=== PATIENT | male | born 1975 | race Caucasian/White ===

== ENCOUNTER 2020-09-27 21:23 | Emergency (ER) | payer OTHER, SELFPAY ==
[2020-09-27 22:41] VITALS: BP 162/79; PULSE 85; RESP 18; TEMP 36.9; O2SAT 98; BMI 40.5
[2020-09-27 23:10] LABS: Basophils Absolute Auto 0.1 X10*3/uL (0.0-0.2); Basophils Percent Auto 0.6 % (0-2); Eosinophils Absolute Auto 0.2 X10*3/uL (0.0-0.4); Eosinophils Percent Auto 1.5 % (0-4); Hematocrit 43.2 % (42-52); Hemoglobin 14.1 g/dl (14.0-18.0); Imm Gran Abs Auto 0.04 X10*3/uL (0.00-0.03); Imm Gran Pct Auto 0.4 % (0.0-0.4); Lymphocytes Absolute Auto 3.4 X10*3/uL (1.2-4.9); Lymphocytes Percent Auto 32.6 % (20-40); MANUAL DIFF FLAG SCAN; Mean Corpuscular HGB Conc 32.6 g/dl (31.0-36.0); Mean Corpuscular Hemoglobin 28.8 pg (27.0-33.0); Mean Corpuscular Volume 88.3 fL (80-98); Mean Platelet Volume 10.3 fL (9.4-12.4); Monocytes Absolute Auto 0.6 X10*3/uL (0.1-1.2); Monocytes Percent Auto 5.7 % (2-11); Neutrophils Absolute Auto 6.2 X10*3/uL (2.0-8.3); Neutrophils Percent Auto 59.2 % (45-73); PLT CLUMP 1; Red Blood Count 4.89 X10*6/uL (4.60-5.80); Red Cell Distribution Width 14.7 % (11.0-16.0); SCAN SMEAR FLAG 1
[2020-09-27 23:28] LABS: Platelet Count 193 X10*3/uL (160-400); SLIDE REVIEW VERIFIED; White Blood Count 10.5 X10*3/uL (4.8-10.8)
[2020-09-27 23:33] LABS: Anion Gap 14 (12-20); Blood Urea Nitrogen 13 mg/dL (9-16); Calcium 9.3 mg/dL (8.4-10.2); Carbon Dioxide 26 mmol/L (22-29); Chloride 102 mmol/L (96-108); Estimated Glomerular Filt Rate > 60; Glucose Random 105 mg/dL (60-115); Potassium 4.1 mmol/L (3.3-5.1); Sodium 138 mmol/L (135-145)
[2020-09-28] VITALS: BP 136/89; PULSE 99; RESP 18; TEMP 36.9; O2SAT 98
--- NOTE | 2020-09-28 00:48 | ED_ITS ---
HPI - Skin/Abscess/Foreign Bdy General Chief complaint: Skin/Abscess/Foreign Body Stated complaint: ?Blood infection Time Seen by Provider: 09/28/20 00:40 Source: patient Mode of arrival: ambulatory Limitations: no limitations History of Present Illness HPI narrative: 45-year-old male history of MRSA infection/abscesses, patient came in concerning of infection at his neck at the hairline, patient also noticed red line running from back of the neck to word right ear. Patient declined any fever or chills. Related Data Previous Rx's Medication Instructions Recorded doxycycline hyclate 100 mg PO BID #20 tab 09/28/20 Allergies Allergy/AdvReac Type Severity Reaction Status Date / Time No Known Allergies Allergy Verified 09/27/20 22:40 [No Known Allergies*] Review of Systems Review of Systems: All other systems are reviewed and are negative Constitutional: Reports as per HPI and Reports no additional constitutional complaints Eyes: Reports as per HPI and Reports no additional eye complaints Reports system reviewed and no additional complaints, except as documented Cardiovascular: Reports as per HPI and Reports no additional cardiovascular complaints Respiratory: Reports as per HPI and Reports no additional respiratory complaints Gastrointestinal: Reports as per HPI and Reports no additional gastrointestinal complaints Genitourinary: Reports no additional female genitourinary complaints Musculoskeletal: Reports no additional musculoskeletal complaints Skin/Breast: Reports system reviewed and no additional complaints, except as docu Psychiatric: Reports no additional psychiatric complaints Endocrine: Reports no additional endocrine complaints Hematologic/Lymphatic: Reports no additional hematologic/lymphatic complaints Allergic/Immunologic: Reports no additional allergic/immunologic complaints Reports system reviewed and no additional complaints, except as documented and Reports Abnormal speech present [facility] Past Medical History Medical History Anxiety Asthma Carpal tunnel syndrome Chronic pain COPD (chronic obstructive pulmonary disease) Depression Diabetes GERD (gastroesophageal reflux disease) HTN (hypertension) Neuropathy Opiate dependence PTSD (post-traumatic stress disorder) Sleep apnea Suicide attempt Thyroid activity decreased Physical Exam Vital Signs: Vital Signs: Last Vital Signs Temp 98.4 F 09/28/20 00:00 Pulse 99 09/28/20 00:00 Resp 18 09/28/20 00:00 BP 136/89 09/28/20 00:00 Pulse Ox 98 09/28/20 00:00 Body Mass Index 40.5 Vital signs have been reviewed as appeared to be correct. Blood pressure normal. Heart rate normal. Respiration rate normal. Temperature normal. Oxygen saturation normal. Appearance: Alert. Oriented X3. No acute distress. Head: Normal external exam. Normocephalic. Atraumatic. No Woody signs noted. No raccoon eyes noted Eyes: PERRLA. EOMI. Conjunctiva and sclera normal. Eyelids normal. ENT: TM's Normal. Pharynx normal. Uvula midline. Moist mucous membranes. No trismus noted. No drooling noted. No muffled voice noted. Neck: No area of fluctuation or abscess is appreciated, positive 7 x 1 cm streak red line running along the right side of the back of the neck, but no redness or hotness. Neck supple. FROM. No adenopathy. Thyroid Normal. No meningeal signs. No neck mass noted. CVS: Normal heart rate and rhythm. Heart sound normal. No murmurs noted. Pulses normal throughout. Respiratory: No respiratory distress. Painless inspiration. Breath sounds normal. No wheezes/rales/rhonchi noted. Chest nontender. No accessory muscle usage noted or decreased air movement noted. Abdomen: Soft and nontender. Bowel sounds normal in all 4 quadrants. No distention noted. No organomegaly noted. No visible injury noted. Back: No CVA tenderness. Full range of motion noted. Skin: Skin warm and dry. Normal skin color. Normal skin turgor. No rashes/lesions/lacerations noted. Extremities: No lower extremity edema. Extremities exhibit normal range of motion. Extremities nontender. Neuro: Oriented X 3. No motor deficit. No sensory deficit. Reflexes normal. Course Course Course Narrative: Cellulitis of the back of the neck. Normal WBCs, no abscesses appreciated. Will start the patient on doxycycline and have the patient return in 2 days to recheck on the wound. MDM - Skin/Abscess/Foreign Bdy Lab Data Attestation: I reviewed the patient's lab results. Result diagrams: 09/27/20 22:55 09/27/20 22:54 Labs: Lab Results 09/27/20 09/27/20 09/27/20 Range/Units 22:54 22:54 22:54 WBC (4.8-10.8) X10*3/uL RBC (4.60-5.80) X10*6/uL Hgb (14.0-18.0) g/dl Hct (42-52) % MCV (80-98) fL MCH (27.0-33.0) pg MCHC (31.0-36.0) g/dl RDW (11.0-16.0) % Plt Count (160-400) X10*3/uL MPV (9.4-12.4) fL Immature Gran % (Auto) (0.0-0.4) % Neut % (Auto) (45-73) % Lymph % (Auto) (20-40) % [place] % (Auto) (2-11) % Eos % (Auto) (0-4) % Baso % (Auto) (0-2) % Lymph # (Auto) (1.2-4.9) X10*3/uL [place] # (Auto) (0.1-1.2) X10*3/uL Eos # (Auto) (0.0-0.4) X10*3/uL Baso # (Auto) (0.0-0.2) X10*3/uL Abs Immat Gran (auto) (0.00-0.03) X10*3/uL Absolute Neuts (auto) (2.0-8.3) X10*3/uL Absolute Nucleated RBC (0.0-0.012) X10*3/uL Nucleated RBC % (auto) (0.0-0.2) /100WBC Smear Tech's Comments Hold Purple Top SEE NOTE Hold Blue Top SEE NOTE Sodium 138 (135-145) mmol/L Potassium 4.1 (3.3-5.1) mmol/L Chloride 102 (96-108) mmol/L Carbon Dioxide 26 (22-29) mmol/L Anion Gap 14 (12-20) BUN 13 (9-16) mg/dL Creatinine 0.86 (0.5-1.4) mg/dL Estim Creat Clear Calc 153.0 Estimated GFR > 60 Random Glucose 105 (60-115) mg/dL Calcium 9.3 (8.4-10.2) mg/dL 09/27/20 Range/Units 22:55 WBC 10.5 (4.8-10.8) X10*3/uL RBC 4.89 (4.60-5.80) X10*6/uL Hgb 14.1 (14.0-18.0) g/dl Hct 43.2 (42-52) % MCV 88.3 (80-98) fL MCH 28.8 (27.0-33.0) pg MCHC 32.6 (31.0-36.0) g/dl RDW 14.7 (11.0-16.0) % Plt Count 193 (160-400) X10*3/uL MPV 10.3 (9.4-12.4) fL Immature Gran % (Auto) 0.4 (0.0-0.4) % Neut % (Auto) 59.2 (45-73) % Lymph % (Auto) 32.6 (20-40) % [place] % (Auto) 5.7 (2-11) % Eos % (Auto) 1.5 (0-4) % Baso % (Auto) 0.6 (0-2) % Lymph # (Auto) 3.4 (1.2-4.9) X10*3/uL [place] # (Auto) 0.6 (0.1-1.2) X10*3/uL Eos # (Auto) 0.2 (0.0-0.4) X10*3/uL Baso # (Auto) 0.1 (0.0-0.2) X10*3/uL Abs Immat Gran (auto) 0.04 H (0.00-0.03) X10*3/uL Absolute Neuts (auto) 6.2 (2.0-8.3) X10*3/uL Absolute Nucleated RBC 0.000 (0.0-0.012) X10*3/uL Nucleated RBC % (auto) 0.0 (0.0-0.2) /100WBC Smear Tech's Comments VERIFIED Hold Purple Top Hold Blue Top Sodium (135-145) mmol/L Potassium (3.3-5.1) mmol/L Chloride (96-108) mmol/L Carbon Dioxide (22-29) mmol/L Anion Gap (12-20) BUN (9-16) mg/dL Creatinine (0.5-1.4) mg/dL Estim Creat Clear Calc Estimated GFR Random Glucose (60-115) mg/dL Calcium (8.4-10.2) mg/dL Discharge Plan Discharge Clinical Impression: Cellulitis Patient Disposition: Home, Self-Care Instructions: Cellulitis (ED) Additional Instructions: Return to the emergency department in 2 days for wound check. Prescriptions: New doxycycline hyclate 100 mg tablet 100 mg PO BID Qty: 20 RF: 0 Referrals: Physician,Unknown [Primary Care Provider] - 2 days
== END 2020-09-28 01:30 | disposition home or self-care (01) ==
LOC: HO.ED 09-28 01:00
PROVIDERS: Emergency Provider Emergency Medicine; PCP Internal Medicine
DX: L03.221 Cellulitis of neck (principal); I10 Essential (primary) hypertension; E11.9 Type 2 diabetes mellitus without complications; J45.909 Unspecified asthma, uncomplicated; K21.9 Gastro-esophageal reflux disease without esophagitis; F41.9 Anxiety disorder, unspecified; Z86.14 Personal history of Methicillin resistant Staphylococcus aureus infection
CPT/HCPCS: 36415; 80048; 85025; 87040; 99283; 99284

== ENCOUNTER 2021-03-22 22:08 | Emergency (ER) | payer OTHER, SELFPAY ==
--- NOTE | ~2021-03-22 | XR_ITS ---
EXAMINATION: CHEST 2 VIEWS CLINICAL INFORMATION: SOB . COMPARISON: 11/05/2018. TECHNIQUE: PA and lateral views of the chest obtained. FINDINGS: The lungs are well expanded. No focal infiltrate, effusion, edema, or pneumothorax. Cardiac and mediastinal silhouettes are within normal limits for technique. No acute bony abnormality seen XR/XR chest 2V IMPRESSION: No evidence of acute disease
[2021-03-22 23:29] VITALS: BP 128/91; PULSE 92; RESP 20; TEMP 36.5; O2SAT 98; BMI 40.6
[2021-03-23] VITALS: O2SAT 98
--- NOTE | 2021-03-23 00:23 | ED.URI ---
HPI - URI/Sore Throat General Chief Complaint: Upper Respiratory Symptoms Stated Complaint: SOB - infection Time Seen by Provider: 03/23/21 00:22 Source: patient History of Present Illness HPI Narrative: Patient history of anxiety PTSD , MRSA infection in the past claims that he has bugs on his body for last 4 months seen his PCP taken the treatment for scabies still feel that he has bugs on him Related Data Previous Rx's Medication Instructions Recorded doxycycline hyclate 100 mg tablet 100 mg PO BID #20 tab 09/28/20 doxycycline hyclate 100 mg tablet 100 mg PO BID #20 tab 03/23/21 Allergies Allergy/AdvReac Type Severity Reaction Status Date / Time grass pollen Allergy Itching Verified 03/22/21 23:32 mold Allergy Itching Verified 03/22/21 23:32 weed pollen Allergy Itching Verified 03/22/21 23:32 PMFSH Past Medical History Medical History Anxiety Asthma Carpal tunnel syndrome Chronic pain COPD (chronic obstructive pulmonary disease) Depression Diabetes GERD (gastroesophageal reflux disease) HTN (hypertension) Neuropathy Opiate dependence PTSD (post-traumatic stress disorder) Sleep apnea Suicide attempt Thyroid activity decreased Social History Social History Alcohol intake: unknown Patient Tobacco Use Status: Tobacco use Unknown Use of substances other than those prescribed or required for medical reasons: Unknown Advance Directives: No Advance Directives Information Provided: Yes Physical Exam Vital Signs: Vital Signs: Last Vital Signs Temp 97.7 F 03/22/21 23:29 Pulse 92 03/22/21 23:29 Resp 20 03/22/21 23:29 BP 128/91 H 03/22/21 23:29 Pulse Ox 98 03/23/21 00:00 Body Mass Index 40.6 Appearance: Alert. Oriented X3. No acute distress. Very anxious paranoid Eyes: PERRLA, No Nystagmus ENT: Pharynx normal. Oral Mucosa moist Neck: Normal inspection. Neck supple. CVS: Normal heart rate and rhythm. Pulses normal. Respiratory: No respiratory distress. Equal air entry bilateral, no wheezing/rales/rhonchi Abdomen: Soft and nontender. Bowel sounds are present, no mass palpable, no CVA tenderness Skin: Skin warm and dry. Normal skin color. Normal skin turgor. Multiple old scabs, no bugs were seen Extremities: No lower extremity edema. No calf tenderness Neuro: Oriented X 3. MDM - URI/Sore Throat MDM Narrative Medical decision making narrative: Patient very paranoid hallucinating about bugs on him no bugs were seen patient reassured and given a course of doxycycline for scabs on his body advised to follow-up with primary care doctor/infectious disease doctor which she has already appointment in 05/08 Lab Data Labs: Lab Results 03/22/21 Range/Units 23:56 COVID-19 (PINA) Negative (Negative) COVID-19 Clin Com See Note Discharge Plan Discharge Clinical Impression: Paranoid delusion Patient Disposition: Home, Self-Care Instructions: Psychotic Disorder (ED) Additional Instructions: Follow-up with psychiatrist/infectious disease doctor for bugs problem if you have No bugs were seen Take doxycycline for MRSA infection Prescriptions: New doxycycline hyclate 100 mg tablet 100 mg PO BID Qty: 20 RF: 0 No Action doxycycline hyclate 100 mg tablet 100 mg PO BID Qty: 20 RF: 0 Interventions: ED Discharge Assessment Last Done: 03/23/21 00:50
[2021-03-23 00:35] LABS: COVID-19 Test Negative (Negative)
--- NOTE | 2021-03-23 01:05 | PC.NURSE ---
Patient states that he has bugs imbedding into his skin. Provider at bedside for evaluation and patient became very agitated that provider did not see any bugs on his skin. Patient came in for upper respiratory sx. He then became very loud with pressured speech with ED provider. This advertising copywriter went to bring patient his discharge instructions to review them and ask any questions. Patient stated that he was not seen by the doctor and that the doctor only spent 2 minutes with him and did not assess patient's skin. This advertising copywriter witness the provider looking at patient's skin. No bugs were seen which upset the patient. Patient was recently treated with antiparasitic medication as well as medication for scabies. He states that he read that bugs were not suppose to go after people. We explained to patient that the doctor didn't see any bugs but that he was being given a prescription for antibiotic. Patient states that he is going to file a complaint with risk management regarding his visit to the emergency room
== END 2021-03-23 01:17 | disposition home or self-care (01) ==
PROVIDERS: Emergency Provider Internal Medicine; PCP Internal Medicine
DX: R06.02 Shortness of breath (principal); F23 Brief psychotic disorder; Z20.822 Contact with and (suspected) exposure to COVID-19; Z79.899 Other long term (current) drug therapy
CPT/HCPCS: 36415; 71046; 87635; 99283; 99284

== ENCOUNTER 2022-03-21 17:35 | Emergency (ER) | payer OTHER, SELFPAY ==
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
[2022-03-21 17:59] VITALS: BP 149/100; PULSE 104; RESP 20; TEMP 36.7; O2SAT 97; BMI 40.6
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
[2022-03-21 21:48] VITALS: BP 147/87; PULSE 97; RESP 18; TEMP 37.1; O2SAT 94
--- OUTSIDE RECORDS SUMMARY | 2022-03-21 21:53 | XMS_ITS | Continuity of Care Document ---
:1975 Author Organization [facility] [place] Address [address] [place] [address]- Care Team Providers Name Role Phone Inocenciosukhjinder Shine SIMMONS Primary Care Physician Encounter [facility] Date(s): 03/22/21 - 04/21/21 [facility] [place] [address] [place], [place] [address] Allergies, Adverse Reactions, Alerts Substance Reaction Severity Status NKA Active Immunizations Given and Recorded Vaccine Date Status Refusal Reason pneumococcal 23-valent vaccine 06/03/18 Given influenza virus vaccine, inactivated 06/03/18 Given influenza virus vaccine, inactivated 03/07/13 Given Medications 2 ccc 18 gauge 1 1/2inch, 2cc syringes for to draw. 2 ccc 18 gauge 1 1/2inch, 2cc syringes for to draw., See Instructions, # 2 application, Refills 0, Tot. Refills 0, Maintenance, Please come to clinic for teaching once you obtain the medication, 09/13/18 9:48:43 EDT, Compound Start Date: 09/13/18 Status: [id number] syringe with 21 gauge 1 inch needle 2cc syringe with 21 gauge 1 inch needle, See Instructions, # 4 application, Refills 11, Tot. [id number], Maintenance, use every 7 days to elicia levine, Please come to clinic for teaching once youobtain the medication, 10/09/18 15:07:16 EDT, Co... Start Date: 10/09/18 Status: OrderedAdvair Diskus 250 mcg-50 mcg inhalation powder 1, puffs, Inhalation, 2 times a day, rinse mouth and throat after use, # 180 each, Refills 5, Tot. Refills 5, Maintenance, 10/09/18 13:48:00 EDT, Powder, Route to Pharmacy Electronically, [id number], [facility]/pharmacy #[id number] Start Date: 10/09/18 Status: Orderedcholecalciferol 1000 intl units oral capsule See Instructions, By Mouth, # 90 each, 5 Refills, Maintenance, 10/09/18 13:48:00 EDT, Capsule Start Date: 10/09/18 Status: Orderedduloxetine 60 mg oral enteric coated capsule 1 capsule, By Mouth, Daily, # 30 capsule, 2 Refills, Maintenance, 06/10/19 12:29:00 EST, [facility] STORE [id number], 183, cm, 10/24/18 13:24:00 EDT, Height Start Date: 06/10/19 Status: OrderedFreestyle Lite Test Strips See Instructions, # 50 each, Refills 5, Tot. Refills 5, Maintenance, To test Blood sugar E11.49, 10/31/18 16:26:00 EDT, Compound Start Date: 10/31/18 Status: Orderedibuprofen 800 mg oral tablet 1, tablet, By Mouth, 3 times a day with meals, OR MILK., # 90 tablet, Refills 5, Tot. Refills 0, Acute, 07/28/19 10:56:00 EST, Route to Pharmacy Electronically, [id number], 183, cm, 07/14/19 10:13:00 EST, Height Start Date: 07/28/19 Status: Orderedmontelukast 10 mg oral tablet 10 mg, 1, tablet, By Mouth, Daily, # 90 tablet, Refills 5, Tot. Refills 5, Maintenance, 10/09/18 13:48:00 EDT, Route to Pharmacy Electronically, [id number], [facility]/pharmacy #[id number] Start Date: 10/09/18 Status: OrderedNeurontin 800 mg oral tablet 1 tablet = 800 mg, By Mouth, 4 times a day, # 360 tablet, 5 Refills, Maintenance, 10/09/18 13:48:00 EDT, mass pat checked 07/19/18, Do Not Filluntil 07/25/18 Start Date: 10/09/18 Status: OrderedNicotine 2 mg gum 1 each = 2 mg, Chew, Every 2 hours, PRN as needed for smoking cessation, Mint flavor, # 40 each, 1 Refills, Maintenance, 12/02/18 16:11:00 EDT, Gum Start Date: 12/02/18 Status: OrderedpredniSONE 20 mg oral tablet 3 tablet = 60 mg, By Mouth, Daily, # 15 tablet, 0 Refills, Maintenance, 01/11/21 15:28:00 EDT, Tablet, [facility]/pharmacy #[id number], Partial fill upon patient request if the prescription is for a schedule II opioid drug., 183, cm, 07/14/19 10:13:00 EST, Height Start Date: 01/11/21 Stop Date: 01/16/21 Status: OrderedProAir HFA 90 mcg/inh inhalation aerosol with adapter 2, puffs, Inhalation, Every 4 hours, # 3 each, Refills 5, Tot. Refills 5, Maintenance, 10/09/18 13:48:00 EDT, Route to Pharmacy Electronically, [id number], [facility]/pharmacy #[id number] Start Date: 10/09/18 Status: OrderedSuboxone 4 mg-1 mg sublingual film See Instructions, Sublingual Daily, 0 Refills, Maintenance, 03/26/18 13:59:48 EDT Start Date: 03/26/18 Status: Orderedtestosterone 20.25 mg/1.25 g (1.62%) transdermal gel 2 pack/packet, Topically, Daily in AM, apply to clean, dry, intact skin, # 60 pack/packet, 5 Refills, Maintenance, 07/14/19 10:24:00 EST, Gel, [facility]/pharmacy #[id number], 183, cm, 07/14/19 10:13:00 EST, Height Start Date: 07/14/19 Stop Date: 01/10/20 Status: OrderedTestosterone Cypionate 200 mg/mL intramuscular solution See Instructions, INJECT 0.25ML ( 50 mg) INTRAMUSCULARLY EVERY 7 DAYS, # 1 mL, 2 Refills, Soft Stop,06/13/19 14:18:00 EST, [facility]/pharmacy #[id number], 183, cm, 10/24/18 13:24:00 EDT, Height Start Date: 06/13/19 Status: Ordered Problem List Condition Effective Dates Status Health Status Informant Asthma(Confirmed) Active Attention deficit disorder(Confirmed) Active Carpal tunnel syndrome, 04/29/13 Active bilateral(Confirmed) History of substance abuse(Confirmed) Active Hypertension(Confirmed) Active Hypogonadism male(Confirmed) Active Morbid obesity with BMI of 40.0-44.9, Active adult(Confirmed) Reflux esophagitis(Confirmed) Active Tobacco abuse(Confirmed) Active Social History Social History Type Response Smoking Status Current every day smoker; Ty pe: Cigarettes entered on: 03/27/18 Sex
--- OUTSIDE RECORDS SUMMARY | 2022-03-21 21:53 | XMS_ITS | Continuity of Care Document ---
:1975 Author Organization [facility] Address [address] [place] [address]- Care Team Providers Name Role Phone Inocenciojose eShine lui DO Primary Care Physician [place] [facility] Date(s): 01/11/21 - 01/11/[address] [address]- Discharge Disposition: A-D/C Home Attending Physician: Kym Simmons MD Admitting Physician: Kym Simmons MD Referring Physician: Not on Staff, Referring MD Allergies, Adverse Reactions, Alerts Substance Reaction Severity [...] 9:48:43 EDT, Compound Start Date: 09/13/18 Status: [id number] syringe with 21 gauge 1 inch needle 2cc syringe with 21 gauge 1 inch needle, See Instructions, # 4 application, Refills 11, Tot. [id number], Maintenance, use every 7 days to annettet julianna, Please come to clinic for teaching once youobtain the medication, 10/09/18 15:07:16 EDT, Co... Start Date: 10/09/18 Status: OrderedAdvair Diskus 250 mcg-50 mcg inhalation powder 1, puffs, Inhalation, 2 times a day, rinse mouth and throat after use, # 180 each, Refills 5, Tot. Refills 5, Maintenance, 10/09/18 13:48:00 EDT, Powder, Route to Pharmacy Electronically, [id number], [facility]/pharmacy #[id number] Start Date: 10/09/18 Status: Orderedcholecalciferol 1000 intl units oral capsule See Instructions, By Mouth, # 90 each, 5 Refills, Maintenance, 10/09/18 13:48:00 EDT, Capsule Start Date: 10/09/18 Status: Orderedduloxetine 60 mg oral enteric coated capsule 1 capsule, By Mouth, Daily, # 30 capsule, 2 Refills, Maintenance, 06/10/19 12:29:00 EST, [facility] STORE 17163, 183, cm, 10/24/18 13:24:00 EDT, Height Start [...] 07/28/19 10:56:00 EST, Route to Pharmacy Electronically, [facility] ST[facility] [address], 183, cm, 07/14/19 10:13:00 EST, Height Start Date: 07/28/19 Status: Orderedmontelukast 10 mg oral tablet 10 mg, 1, tablet, By Mouth, Daily, # 90 tablet, Refills 5, Tot. Refills 5, Maintenance, 10/09/18 13:48:00 EDT, Route to Pharmacy Electronically, [id number], [facility]/pharmacy #[id number] Start Date: 10/09/18 Status: OrderedNeurontin 800 [...] 0 Refills, Maintenance, 01/11/21 15:28:00 EDT, Tablet, [facility]/pharmacy #[id number], Partial fill upon patient request if the prescription is for a schedule II opioid drug., 183, cm, 07/14/19 10:13:00 EST, Height Start Date: 01/11/21 Stop Date: 01/16/21 Status: OrderedProAir HFA 90 mcg/inh inhalation aerosol with adapter 2, puffs, Inhalation, Every 4 hours, # 3 each, Refills 5, Tot. Refills 5, Maintenance, 10/09/18 13:48:00 EDT, Route to Pharmacy Electronically, [id number], [facility]/pharmacy #[id number] Start Date: 10/09/18 Status: OrderedSuboxone 4 mg-1 mg sublingual film See Instructions, Sublingual Daily, 0 Refills, Maintenance, 03/26/18 13:59:48 EDT Start Date: 03/26/18 Status: Orderedtestosterone 20.25 mg/1.25 g (1.62%) transdermal gel 2 pack/packet, Topically, Daily in AM, apply to clean, dry, intact skin, # 60 pack/packet, 5 Refills, Maintenance, 07/14/19 10:24:00 EST, Gel, [facility]/pharmacy #[id number], 183, cm, 07/14/19 10:13:00 EST, Height Start Date: 07/14/19 Stop Date: 01/10/20 Status: OrderedTestosterone Cypionate 200 mg/mL intramuscular solution See Instructions, INJECT 0.25ML ( 50 mg) INTRAMUSCULARLY EVERY 7 DAYS, # 1 mL, 2 Refills, Soft Stop,06/13/19 14:18:00 EST, [facility]/pharmacy #[id number], 183, cm, 10/24/18 13:24:00 EDT, Height Start Date: 06/13/19 Status: Ordered Problem List Condition Effective Dates Status Health Status Informant Asthma(Confirmed) Active Attention deficit disorder(Confirmed) Active Carpal tunnel syndrome, 04/29/13 Active bilateral(Confirmed) History of substance abuse(Confirmed) Active Hypertension(Confirmed) Active Hypogonadism male(Confirmed) Active Morbid obesity with BMI of 40.0-44.9, Active adult(Confirmed) Reflux esophagitis(Confirmed) Active Tobacco abuse(Confirmed) Active Results Radiology Reports Exam Date Time Procedure Performing Provider Status 01/11/21 2:33 PM Chest 2 Views Frontal and Lat Shahzad Helm (Verified) Notes:(Chest 2 Views Frontal and Lat) Reason For Exam: Shortness of Breath, Fever;Other:RESULT: Chest 2 Views Frontal and Lat Chest 2 Views Frontal and Lat Reason: Other:; Shortness of Breath, Fever; Clinical Question(s): Pneumonia COMPARISON: 11/02/2007 FINDINGS: No acute cardiopulmonary process IMPRESSION: No acute abnormality. WSN: [id number] Ordering Physician: Terrie Bradford Dictated By: Jaron Truong MD Dictated Date/Time: 01/11/21 2:41 pm Reviewed By: Jaron Truong MD Signed By: Jaron Truong MD Signed Date/Time: 01/11/21 2:41 pm Transcribed By: PUNEET Transcribed Date/Time: 01/11/21 2:34 pm Vital Signs Most recent to oldest [Reference Range]: 1 2 Oxygen Saturation [94-100 %] 100 % 100 % (01/11/21 3:48 PM) (01/11/21 2:03 PM) Pulse Rate [55-90 bpm] 62 bpm 64 bpm (01/11/21 3:48 PM) (01/11/21 2:03 PM) Blood Pressure [90-138/55-84 mm Hg] 116/81 mm Hg 126/ 92 mm Hg (01/11/21 3:48 PM) (01/11/21 2:03 PM) Respiratory Rate [16-30 br/min] 18 br/min 20 br/mi n (01/11/21 3:48 PM) (01/11/21 2:03 PM) Temperature [96.8-100.4 DegF] 98.6 DegF (01/11/21 2:03 PM) Mode of Delivery (Oxygen) Room air Room air (01/11/21 3:48 PM) (01/11/21 2:03 PM) Blood pressure sites Arm, right Arm, right (01/11/21 3:48 PM) (01/11/21 2:03 PM) Temperature Route Oral (01/11/21 2:03 PM) Social History Social History Type Response Smoking Status Current every day smoker; Ty pe: Cigarettes entered on: 03/27/18 Sex
--- OUTSIDE RECORDS SUMMARY | 2022-03-21 21:53 | XMS_ITS | Continuity of Care Document ---
:1975 Author Organization [facility] [place] Address [address] [place] [address]- Care Team Providers Name Role Phone Shine Kim DO Primary Care Physician Encounter [facility] Date(s): 03/29/21 - 04/28/21 [facility] [place] [address] [place], [place] [address] Attending Physician: AdmLeonides [email or web address] Admitting Physician: Admtr, [email or web address] Referring Physician: Admtr, Ar8 Allergies, Adverse Reactions, Alerts Substance Reaction Severity [...] 9:48:43 EDT, Compound Start Date: 09/13/18 Status: Kjfkbdu1il syringe with 21 gauge 1 inch needle 2cc syringe with 21 gauge 1 inch needle, See Instructions, # 4 application, Refills 11, Tot. [id number], Maintenance, use every 7 days to inejct testosteron, Please come to clinic for teaching once youobtain the medication, 10/09/18 15:07:16 EDT, Co... Start Date: 10/09/18 Status: OrderedAdvair Diskus 250 mcg-50 mcg inhalation powder 1, puffs, Inhalation, 2 times a day, rinse mouth and throat after use, # 180 each, Refills 5, Tot. Refills 5, Maintenance, 10/09/18 13:48:00 EDT, Powder, Route to Pharmacy Electronically, [id number], [facility]/pharmacy #[id number] Start Date: 10/09/18 Status: Orderedcholecalciferol 1000 intl units oral capsule See Instructions, By Mouth, # 90 each, 5 Refills, Maintenance, 10/09/18 13:48:00 EDT, Capsule Start Date: 10/09/18 Status: Orderedduloxetine 60 mg oral enteric coated capsule 1 capsule, By Mouth, Daily, # 30 capsule, 2 Refills, Maintenance, 06/10/19 12:29:00 EST, [facility], 183, cm, 10/24/18 13:24:00 EDT, Height Start [...] 07/28/19 10:56:00 EST, Route to Pharmacy Electronically, [facility] ST[facility] [address]148, 183, cm, 07/14/19 10:13:00 EST, Height Start Date: 07/28/19 Status: Orderedmontelukast 10 mg oral tablet 10 mg, 1, tablet, By Mouth, Daily, # 90 tablet, Refills 5, Tot. Refills 5, Maintenance, 10/09/18 13:48:00 EDT, Route to Pharmacy Electronically, [id number], [facility]/pharmacy #[id number] Start Date: 10/09/18 Status: OrderedNeurontin 800 [...] 0 Refills, Maintenance, 01/11/21 15:28:00 EDT, Tablet, [facility]/pharmacy #[id number], Partial fill upon patient request if the prescription is for a schedule II opioid drug., 183, cm, 07/14/19 10:13:00 EST, Height Start Date: 01/11/21 Stop Date: 01/16/21 Status: OrderedProAir HFA 90 mcg/inh inhalation aerosol with adapter 2, puffs, Inhalation, Every 4 hours, # 3 each, Refills 5, Tot. Refills 5, Maintenance, 10/09/18 13:48:00 EDT, Route to Pharmacy Electronically, [id number], [facility]/pharmacy #[id number] Start Date: 10/09/18 Status: OrderedSuboxone 4 mg-1 mg sublingual film See Instructions, Sublingual Daily, 0 Refills, Maintenance, 03/26/18 13:59:48 EDT Start Date: 03/26/18 Status: Orderedtestosterone 20.25 mg/1.25 g (1.62%) transdermal gel 2 pack/packet, Topically, Daily in AM, apply to clean, dry, intact skin, # 60 pack/packet, 5 Refills, Maintenance, 07/14/19 10:24:00 EST, Gel, [facility]/pharmacy #[id number], 183, cm, 07/14/19 10:13:00 EST, Height Start Date: 07/14/19 Stop Date: 01/10/20 Status: OrderedTestosterone Cypionate 200 mg/mL intramuscular solution See Instructions, INJECT 0.25ML ( 50 mg) INTRAMUSCULARLY EVERY 7 DAYS, # 1 mL, 2 Refills, Soft Stop,06/13/19 14:18:00 EST, [facility]/pharmacy #[id number], 183, cm, 10/24/18 13:24:00 EDT, Height [...]
--- OUTSIDE RECORDS SUMMARY | 2022-03-21 21:53 | XMS_ITS | Continuity of Care Document ---
:1975 Author Organization [facility] Address [address] [place] [address]- Care Team Providers Name Role Phone Shine Kim DO Primary Care Physician Encounter [facility] Date(s): 12/23/19 - 01/22/20 [facility] [address] [place] [address]- [facility] Allergies, Adverse Reactions, Alerts Substance Reaction Severity [...] 9:48:43 EDT, Compound Start Date: 09/13/18 Status: Khvqdvm0pr syringe with 21 gauge 1 inch needle 2cc syringe with 21 gauge 1 inch needle, See Instructions, # 4 application, Refills 11, Tot. Kvqjevp63, Maintenance, use every 7 days to inejct testosteron, Please come to clinic for teaching once youobtain the medication, 10/09/18 15:07:16 EDT, Co... Start Date: 10/09/18 Status: OrderedAdvair Diskus 250 mcg-50 mcg inhalation powder 1, puffs, Inhalation, 2 times a day, rinse mouth and throat after use, # 180 each, Refills 5, Tot. Refills 5, Maintenance, 10/09/18 13:48:00 EDT, Powder, Route to Pharmacy Electronically, [id number], [facility]/pharmacy #[id number] Start Date: 10/09/18 Status: Orderedcholecalciferol 1000 intl units oral capsule See Instructions, By Mouth, # 90 each, 5 Refills, Maintenance, 10/09/18 13:48:00 EDT, Capsule Start Date: 10/09/18 Status: Orderedduloxetine 60 mg oral enteric coated capsule 1 capsule, By Mouth, Daily, # 30 capsule, 2 Refills, Maintenance, 06/10/19 12:29:00 EST, [facility] STORE 16778, 183, cm, 10/24/18 13:24:00 EDT, Height Start [...] 07/28/19 10:56:00 EST, Route to Pharmacy Electronically, [facility] STORE [id number], 183, cm, 07/14/19 10:13:00 EST, Height Start Date: 07/28/19 Status: Orderedmontelukast 10 mg oral tablet 10 mg, 1, tablet, By Mouth, Daily, # 90 tablet, Refills 5, Tot. Refills 5, Maintenance, 10/09/18 13:48:00 EDT, Route to Pharmacy Electronically, [id number], [facility]/pharmacy #[id number] Start Date: 10/09/18 Status: OrderedNeurontin [...] 16:11:00 EDT, Gum Start Date: 12/02/18 Status: OrderedProAir HFA 90 mcg/inh inhalation aerosol with adapter 2, puffs, Inhalation, Every 4 hours, # 3 each, Refills 5, Tot. Refills 5, Maintenance, 10/09/18 13:48:00 EDT, Route to Pharmacy Electronically, [id number], [facility]/pharmacy #[id number] Start Date: 10/09/18 Status: OrderedSuboxone 4 mg-1 mg sublingual film See Instructions, Sublingual Daily, 0 Refills, Maintenance, 03/26/18 13:59:48 EDT Start Date: 03/26/18 Status: Orderedtestosterone 20.25 mg/1.25 g (1.62%) transdermal gel 2 pack/packet, Topically, Daily in AM, apply to clean, dry, intact skin, # 60 pack/packet, 5 Refills, Maintenance, 07/14/19 10:24:00 EST, Gel, [facility]/pharmacy #[id number], 183, cm, 07/14/19 10:13:00 EST, Height Start Date: 07/14/19 Stop Date: 01/10/20 Status: OrderedTestosterone Cypionate 200 mg/mL intramuscular solution See Instructions, INJECT 0.25ML ( 50 mg) INTRAMUSCULARLY EVERY 7 DAYS, # 1 mL, 2 Refills, Soft Stop,06/13/19 14:18:00 EST, [facility]/pharmacy #[id number], 183, cm, 10/24/18 13:24:00 EDT, Height [...]
--- OUTSIDE RECORDS SUMMARY | 2022-03-21 21:53 | XMS_ITS | Continuity of Care Document ---
:1975 Author Organization [facility] [place] Address [address] [place] [address]- Care Team Providers Name Role Phone Yonatan REHMAN, Jaron Allison Primary Care Physician Encounter [facility] Date(s): 07/14/19 - 07/24/19 [facility] [address] [place] [address]- [facility] Attending Physician: Admtr, Ar8 Admitting Physician: Admtr, Ar8 Referring Physician: Admtr, Ar8 Allergies, Adverse Reactions, [...] 9:48:43 EDT, Compound Start Date: 09/13/18 Status: Lxukvxa1jj syringe with 21 gauge 1 inch needle 2cc syringe with 21 gauge 1 inch needle, See Instructions, # 4 application, Refills 11, Tot. [id number], Maintenance, use every 7 days to elicia levine, Please come to clinic for teaching once youobtain the medication, 10/09/18 15:07:16 EDT, Co... Start Date: 10/09/18 Status: OrderedAdvair Diskus 250 mcg-50 mcg inhalation powder 1, puffs, Inhalation, 2 times a day, rinse mouth and throat after use, # 180 each, Refills 5, Tot. Refills 5, Maintenance, 10/09/18 13:48:00 EDT, Powder, Route to Pharmacy Electronically, [id number], [facility]/pharmacy #[id number] Start Date: 10/09/18 Status: Orderedcholecalciferol 1000 intl units oral capsule See Instructions, By Mouth, # 90 each, 5 Refills, Maintenance, 10/09/18 13:48:00 EDT, Capsule Start Date: 10/09/18 Status: Orderedduloxetine 60 mg oral enteric coated capsule 1 capsule, By Mouth, Daily, # 30 capsule, 2 Refills, Maintenance, 06/10/19 12:29:00 EST, [facility], 183, cm, 10/24/18 13:24:00 EDT, Height Start Date: 06/10/19 Status: OrderedFreestyle Lite Test Strips See Instructions, # 50 each, Refills 5, Tot. Refills 5, Maintenance, To test Blood sugar E11.49, 10/31/18 16:26:00 EDT, Compound Start Date: 10/31/18 Status: Orderedibuprofen 800 mg oral tablet 800 mg, 1, tablet, By Mouth, 3 times a day, with food or milk, # 90 tablet, Refills 5, Tot. Refills 5, Maintenance, 10/09/18 13:48:00 EDT, Route to Pharmacy Electronically, [id number], [id number] Start Date: 10/09/18 Status: Orderedmontelukast 10 mg oral tablet 10 mg, 1, tablet, By Mouth, Daily, # 90 tablet, Refills 5, Tot. Refills 5, Maintenance, 10/09/18 13:48:00 EDT, Route to Pharmacy Electronically, [id number], [facility]/pharmacy #0693 Start Date: 10/09/18 Status: OrderedNeurontin [...] 10/09/18 13:48:00 EDT, Route to Pharmacy Electronically, [id number], [facility]/pharmacy #[id number] Start Date: 10/09/18 Status: OrderedSuboxone 4 mg-1 mg sublingual film See Instructions, Sublingual Daily, 0 Refills, Maintenance, 03/26/18 13:59:48 EDT Start Date: 03/26/18 Status: Orderedtestosterone 20.25 mg/1.25 g (1.62%) transdermal gel 2 pack/packet, Topically, Daily in AM, apply to clean, dry, intact skin, # 60 pack/packet, 5 Refills, Maintenance, 07/14/19 10:24:00 EST, Gel, [facility]/pharmacy #[id number], 183, cm, 07/14/19 10:13:00 EST, Height Start Date: 07/14/19 Stop Date: 01/10/20 Status: OrderedTestosterone Cypionate 200 mg/mL intramuscular solution See Instructions, INJECT 0.25ML ( 50 mg) INTRAMUSCULARLY EVERY 7 DAYS, # 1 mL, 2 Refills, Soft Stop,06/13/19 14:18:00 EST, [facility]/pharmacy #[id number], 183, cm, 10/24/18 13:24:00 EDT, [...]
--- OUTSIDE RECORDS SUMMARY | 2022-03-21 21:53 | XMS_ITS | Continuity of Care Document ---
:1975 Author Organization [facility] Address [address] [place] [address]- Care Team Providers Name Role Phone Shine Kim DO Primary Care Physician Encounter [facility] Date(s): 12/16/19 - 01/15/20 [facility] [address] [place] [address]- [facility] Allergies, Adverse Reactions, Alerts Substance Reaction Severity [...] 9:48:43 EDT, Compound Start Date: 09/13/18 Status: Maozctk5ml syringe with 21 gauge 1 inch needle 2cc syringe with 21 gauge 1 inch needle, See Instructions, # 4 application, Refills 11, Tot. [id number], Maintenance, use every 7 days to arianajct testosteron, Please come to clinic for teaching once youobtain the medication, 10/09/18 15:07:16 EDT, Co... Start Date: 10/09/18 Status: OrderedAdvair Diskus 250 mcg-50 mcg inhalation powder 1, puffs, Inhalation, 2 times a day, rinse mouth and throat after use, # 180 each, Refills 5, Tot. Refills 5, Maintenance, 10/09/18 13:48:00 EDT, Powder, Route to Pharmacy Electronically, [id number], [facility]/pharmacy #[id number] Start Date: 10/09/18 Status: Orderedcholecalciferol 1000 intl units oral capsule See Instructions, By Mouth, # 90 each, 5 Refills, Maintenance, 10/09/18 13:48:00 EDT, Capsule Start Date: 10/09/18 Status: Orderedduloxetine 60 mg oral enteric coated capsule 1 capsule, By Mouth, Daily, # 30 capsule, 2 Refills, Maintenance, 06/10/19 12:29:00 EST, [facility] [id number], 183, cm, 10/24/18 13:24:00 EDT, Height Start [...] 07/28/19 10:56:00 EST, Route to Pharmacy Electronically, [facility] [id number], 183, cm, 07/14/19 10:13:00 EST, Height Start Date: 07/28/19 Status: Orderedmontelukast 10 mg oral tablet 10 mg, 1, tablet, By Mouth, Daily, # 90 tablet, Refills 5, Tot. Refills 5, Maintenance, 10/09/18 13:48:00 EDT, Route to Pharmacy Electronically, [id number], [facility]/pharmacy #[id number] Start Date: 10/09/18 Status: OrderedNeurontin [...] 10/09/18 13:48:00 EDT, Route to Pharmacy Electronically, [id number], [facility]/pharmacy #[id number] Start Date: 10/09/18 Status: OrderedSuboxone 4 mg-1 mg sublingual film See Instructions, Sublingual Daily, 0 Refills, Maintenance, 03/26/18 13:59:48 EDT Start Date: 03/26/18 Status: Orderedtestosterone 20.25 mg/1.25 g (1.62%) transdermal gel 2 pack/packet, Topically, Daily in AM, apply to clean, dry, intact skin, # 60 pack/packet, 5 Refills, Maintenance, 07/14/19 10:24:00 EST, Gel, [facility]/pharmacy #[id number], 183, cm, 07/14/19 10:13:00 EST, Height Start Date: 07/14/19 Stop Date: 01/10/20 Status: OrderedTestosterone Cypionate 200 mg/mL intramuscular solution See Instructions, INJECT 0.25ML ( 50 mg) INTRAMUSCULARLY EVERY 7 DAYS, # 1 mL, 2 Refills, Soft Stop,06/13/19 14:18:00 EST, [facility]/pharmacy #[id number], 183, cm, 10/24/18 13:24:00 EDT, [...]
--- OUTSIDE RECORDS SUMMARY | 2022-03-21 21:53 | XMS_ITS | Continuity of Care Document ---
:1975 Author Organization [facility] Address [address] [place] [address]- Care Team Providers Name Role Phone Shine Kim DO Primary Care Physician Encounter [facility] Date(s): 12/25/19 - 01/24/20 [facility] [address] [place] [address]- [facility] Allergies, Adverse Reactions, Alerts Substance Reaction Severity [...] 9:48:43 EDT, Compound Start Date: 09/13/18 Status: [id number] syringe with 21 gauge 1 inch needle 2cc syringe with 21 gauge 1 inch needle, See Instructions, # 4 application, Refills 11, Tot. [id number], Maintenance, use every 7 days to inejct testosteron, Please come to clinic for teaching once youobtain the medication, 10/09/18 15:07:16 EDT, Co... Start Date: 10/09/18 Status: OrderedAdvair Diskus 250 mcg-50 mcg inhalation powder 1, puffs, Inhalation, 2 times a day, rinse mouth and throat after use, # 180 each, Refills 5, Tot. Refills 5, Maintenance, 10/09/18 13:48:00 EDT, Powder, Route to Pharmacy Electronically, [id number], [facility]/pharmacy #[id number] Start Date: 10/09/18 Status: Orderedcholecalciferol 1000 intl units oral capsule See Instructions, By Mouth, # 90 each, 5 Refills, Maintenance, 10/09/18 13:48:00 EDT, Capsule Start Date: 10/09/18 Status: Orderedduloxetine 60 mg oral enteric coated capsule 1 capsule, By Mouth, Daily, # 30 capsule, 2 Refills, Maintenance, 06/10/19 12:29:00 EST, [facility] [id number], 183, cm, 10/24/18 13:24:00 EDT, Height Start [...] 07/28/19 10:56:00 EST, Route to Pharmacy Electronically, [facility] [id number], 183, cm, 07/14/19 10:13:00 EST, Height Start Date: 07/28/19 Status: Orderedmontelukast 10 mg oral tablet 10 mg, 1, tablet, By Mouth, Daily, # 90 tablet, Refills 5, Tot. Refills 5, Maintenance, 10/09/18 13:48:00 EDT, Route to Pharmacy Electronically, [id number], [facility]/pharmacy #[id number] Start Date: 10/09/18 Status: OrderedNeurontin 800 [...] 10/09/18 13:48:00 EDT, Route to Pharmacy Electronically, [id number], [facility]/pharmacy #[id number] Start Date: 10/09/18 Status: OrderedSuboxone 4 mg-1 mg sublingual film See Instructions, Sublingual Daily, 0 Refills, Maintenance, 03/26/18 13:59:48 EDT Start Date: 03/26/18 Status: Orderedtestosterone 20.25 mg/1.25 g (1.62%) transdermal gel 2 pack/packet, Topically, Daily in AM, apply to clean, dry, intact skin, # 60 pack/packet, 5 Refills, Maintenance, 07/14/19 10:24:00 EST, Gel, [facility]/pharmacy #[id number], 183, cm, 07/14/19 10:13:00 EST, Height Start Date: 07/14/19 Stop Date: 01/10/20 Status: OrderedTestosterone Cypionate 200 mg/mL intramuscular solution See Instructions, INJECT 0.25ML ( 50 mg) INTRAMUSCULARLY EVERY 7 DAYS, # 1 mL, 2 Refills, Soft Stop,06/13/19 14:18:00 EST, [facility]/pharmacy #[id number], 183, cm, 10/24/18 13:24:00 EDT, Height [...]
--- OUTSIDE RECORDS SUMMARY | 2022-03-21 21:53 | XMS_ITS | Continuity of Care Document ---
:1975 Author Organization [facility] Address [address] [place] [address]- Care Team Providers Name Role Phone Shine Kim DO Primary Care Physician Encounter [facility] Date(s): 12/25/19 - 01/24/20 [facility] [address] [place] [address]- [facility] Allergies, Adverse Reactions, Alerts Substance Reaction Severity [...] 9:48:43 EDT, Compound Start Date: 09/13/18 Status: [id number] syringe with 21 gauge 1 inch needle 2cc syringe with 21 gauge 1 inch needle, See Instructions, # 4 application, Refills 11, Tot. [id number], Maintenance, use every 7 days to inejct testosteron, Please come to clinic for teaching once youobtain the medication, 10/09/18 15:07:16 EDT, Co... Start Date: 10/09/18 Status: OrderedAdvair Diskus 250 mcg-50 mcg inhalation powder 1, puffs, Inhalation, 2 times a day, rinse mouth and throat after use, # 180 each, Refills 5, Tot. Refills 5, Maintenance, 10/09/18 13:48:00 EDT, Powder, Route to Pharmacy Electronically, [id number], [facility]/pharmacy #[id number] Start Date: 10/09/18 Status: Orderedcholecalciferol 1000 intl units oral capsule See Instructions, By Mouth, # 90 each, 5 Refills, Maintenance, 10/09/18 13:48:00 EDT, Capsule Start Date: 10/09/18 Status: Orderedduloxetine 60 mg oral enteric coated capsule 1 capsule, By Mouth, Daily, # 30 capsule, 2 Refills, Maintenance, 06/10/19 12:29:00 EST, [facility] [id number], 183, cm, 10/24/18 13:24:00 EDT, Height Start [...] 07/28/19 10:56:00 EST, Route to Pharmacy Electronically, [facility] [id number], 183, cm, 07/14/19 10:13:00 EST, Height Start Date: 07/28/19 Status: Orderedmontelukast 10 mg oral tablet 10 mg, 1, tablet, By Mouth, Daily, # 90 tablet, Refills 5, Tot. Refills 5, Maintenance, 10/09/18 13:48:00 EDT, Route to Pharmacy Electronically, [id number], [facility]/pharmacy #[id number] Start Date: 10/09/18 Status: OrderedNeurontin 800 [...] 10/09/18 13:48:00 EDT, Route to Pharmacy Electronically, [id number], [facility]/pharmacy #[id number] Start Date: 10/09/18 Status: OrderedSuboxone 4 mg-1 mg sublingual film See Instructions, Sublingual Daily, 0 Refills, Maintenance, 03/26/18 13:59:48 EDT Start Date: 03/26/18 Status: Orderedtestosterone 20.25 mg/1.25 g (1.62%) transdermal gel 2 pack/packet, Topically, Daily in AM, apply to clean, dry, intact skin, # 60 pack/packet, 5 Refills, Maintenance, 07/14/19 10:24:00 EST, Gel, [facility]/pharmacy #[id number], 183, cm, 07/14/19 10:13:00 EST, Height Start Date: 07/14/19 Stop Date: 01/10/20 Status: OrderedTestosterone Cypionate 200 mg/mL intramuscular solution See Instructions, INJECT 0.25ML ( 50 mg) INTRAMUSCULARLY EVERY 7 DAYS, # 1 mL, 2 Refills, Soft Stop,06/13/19 14:18:00 EST, [facility]/pharmacy #[id number], 183, cm, 10/24/18 13:24:00 EDT, Height [...]
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
== END 2022-03-22 00:25 | disposition home or self-care (01) ==
PROVIDERS: Emergency Provider Emergency Medicine Emergency Medical Services; PCP Internal Medicine
DX: S16.1XXA Strain of muscle, fascia and tendon at neck level, initial encounter (principal); S43.402A Unspecified sprain of left shoulder joint, initial encounter; M54.2 Cervicalgia; R51.9 Headache, unspecified; M25.551 Pain in right hip; M25.562 Pain in left knee; V43.52XA Car driver injured in collision with other type car in traffic accident, initial encounter; Y93.9 Activity, unspecified; Y92.410 Unspecified street and highway as the place of occurrence of the external cause; Y99.9 Unspecified external cause status; Z79.899 Other long term (current) drug therapy
CPT/HCPCS: 72040; 73030; 73502; 73560; 99283

== ENCOUNTER 2025-02-12 10:33 | Emergency (ER) | payer OTHER, SELFPAY ==
[2025-02-12 10:48] VITALS: BP 182/90; PULSE 85; O2SAT 100; BMI 30.5
[2025-02-12 11:00] VITALS: BP 140/71; PULSE 88; RESP 16; TEMP 36.8; O2SAT 99
--- NOTE | 2025-02-12 11:15 | PC.NURSE ---
Addendum entered by Sylvie Monge RN 02/12/25 11:18: Patient is a 49 yo male who presents with sciatic pain for the past 2 days. Patient alert and oriented. Morbidly obese. Lungs clear bilat. Respirations even and non-labored. Abdomen large, soft, non-tender with positive bowel sounds. Positive pedal pulses with no edema. Patient c/o left sided sciatic pain radiating to his knee with some numbness to his foot. Original Note: Medical History Anxiety Asthma Carpal tunnel syndrome Chronic pain COPD (chronic obstructive pulmonary disease) Depression Diabetes GERD (gastroesophageal reflux disease) HTN (hypertension) Neuropathy Opiate dependence PTSD (post-traumatic stress disorder) Sleep apnea Suicide attempt Thyroid activity decreased
--- NOTE | 2025-02-12 11:20 | ED_ITS ---
HPI - Back Pain/Injury General Chief Complaint: Back Pain/Injury Stated Complaint: LOW BACK TO LLE PAIN,NO INJURY PER EMS Time Seen by Provider: 02/12/25 11:01 History of Present Illness ED Provider: fern HPI Narrative: 49-year-old male who reports a history of obesity with significant desired weight loss , chronic degenerative disease or bones verse in the lower thoracic spine per his description with chronic sciatic usually right side occasionally left side for the past 42 hours he reports atraumatic severe left low back pain radiating down left leg consistent with previous sciatica. No incontinence no numbness tingling weakness denies any perineal anesthesia or overt motor deficits. Pain is severe he has not taking much suud-hwa-cyptayr at home. Related Data Previous Rx's ?Medication ?Instructions ?Recorded doxycycline hyclate 100 mg tablet 100 mg PO BID #20 ta bs 09/28/20 doxycycline hyclate 100 mg tablet 100 mg PO BID #20 ta bs 03/23/21 cyclobenzaprine 10 mg tablet 10 mg PO TID PRN muscle s pasm #14 02/12/25 tabs oxycodone 5 mg tablet 5 mg PO Q8H PRN pain #10 tab s 02/12/25 prednisone 20 mg tablet 60 mg (3 x 20 mg) PO DAILY 4 days 02/12/25 #12 tabs Allergies Allergy/AdvReac Type Severity Reaction Status Date / Time grass pollen Allergy Itching Verified 02/12/25 10:57 mold Allergy Itching Verified 02/12/25 10:57 weed pollen Allergy Itching Verified 02/12/25 10:57 PMFSH Past Medical History Medical History Anxiety Asthma Carpal tunnel syndrome Chronic pain COPD (chronic obstructive pulmonary disease) Depression Diabetes GERD (gastroesophageal reflux disease) HTN (hypertension) Neuropathy Opiate dependence PTSD (post-traumatic stress disorder) Sleep apnea Suicide attempt Thyroid activity decreased Social History Social History Alcohol intake: unknown Patient Tobacco Use Status: Tobacco use Unknown Smoked in Last 30 Days: No Use of substances other than those prescribed or required for medical reasons: No Advance Directives: No Advance Directives Information Provided: No Physical Exam 2 Exam: Exam: EXAM: Gen: Alert, awake, appears in significant pain redirectable and conversational. No distress Head: Atraumatic Eyes: Anicteric, Normal conjunctiva. ENT: Moist mucosa, no pallor. ? Neck: Supple. Skin: ?No observable rash or bruising on exposed or examined skin Respiratory: Breathing comfortably, No distress.Clear to auscultation bilaterally, symmetric chest expansion, No wheeze, rales, ronchi. Cardiovascular: Regular rate and rhythm. No murmurs or rub. Well perfused periphery, warm extremities. No edema. ? Abdominal: No focal tenderness. Soft, no objective distension. No palpable masses or obvious organomegaly. ?No guarding, no rebound tenderness or other peritoneal findings. : No flank tenderness. Neuro: Alert. Gross movement of all extremities intact. ?5/5 strength left lower extremity proximal and distal with intact sensation to light touch normal tone. Unable to assess reflexes given patient's positioning Psych: Calm. Cooperative. MSK: No grossly visible deformity. Tender left lower lumbosacral region no bruising no midline tenderness of the spine Vital signs: See flowsheet Vital Signs: Vital Signs: Last Vital Signs Temp 98.6 F 02/12/25 16:48 Pulse 80 02/12/25 16:48 Resp 14 02/12/25 16:48 BP 152/91 H 02/12/25 16:48 Pulse Ox 96 02/12/25 16:48 O2 Del Method Room Air 02/12/25 16:48 BMI result Body Mass Index 30.5 Medications Administered Discontinued Medications Generic Name Dose Route Start Last Admin Trade Name Freq PRN Reason Stop Dose Admin Dexamethasone Sodium Phosphate 10 mg 02/12/25 11:16 02/12/25 11:53 Dexamethasone Sod Phosphate 10 Mg/Ml Vial IVPUSH 02/12/25 11:17 10 mg ONCE ONE Administration Diazepam 5 mg 02/12/25 11:16 02/12/25 11:54 Diazepam 10 Mg/2 Ml Cartridge IVPUSH 02/12/25 11:17 5 mg STAT STA Administration Diazepam 2.5 mg 02/12/25 14:56 02/12/25 15:02 Diazepam 10 Mg/2 Ml Cartridge IVPUSH 02/12/25 14:57 2.5 mg STAT STA Administration Hydromorphone HCl 1 mg 02/12/25 11:16 02/12/25 11:54 Hydromorphone Hcl 1 Mg/Ml Syringe IVPUSH 02/12/25 11:17 1 mg ONCE ONE Administration Protocol Hydromorphone HCl 2 mg 02/12/25 12:48 02/12/25 13:14 Hydromorphone Hcl 2 Mg/Ml Vial IVPUSH 02/12/25 12:49 2 mg ONCE ONE Administration Protocol Acetaminophen 1,000 mg in 100 mls @ 400 mls/hr 02/12/25 12:48 02/12/25 14:38 Ofirmev IV 02/12/25 13:02 Infused ONCE ONE Infusion Ketorolac Tromethamine 30 mg 02/12/25 11:16 02/12/25 11:53 Ketorolac Tromethamine 30 Mg/Ml Vial IVPUSH 02/12/25 11:17 30 mg ONCE ONE Administration Lidocaine 1 patch 02/12/25 14:56 02/12/25 15:02 Lidocaine 4 % Patch Adh..Patch TRANSDERMA 02/12/25 14:57 1 patch ONCE ONE Administration Protocol Morphine Sulfate 15 mg 02/12/25 14:47 02/12/25 14:55 Morphine Sulfate Immed Release 15 Mg Tablet PO 02/12/25 14:48 Not Given ONCE ONE Oxycodone HCl 10 mg 02/12/25 14:55 02/12/25 15:01 Oxycodone Hcl Immed Release 5 Mg Tablet PO 02/12/25 14:56 10 mg ONCE ONE Administration Oxycodone HCl 10 mg 02/12/25 16:33 02/12/25 16:37 Oxycodone Hcl Er 10 Mg Tab.Er.12h PO 02/12/25 16:34 10 mg ONCE ONE Administration Medical Decision Making Medical Decision Making MDM Narrative: Medical Decision Makin-year-old male with recurrent left low back pain and sciatic distribution likely radiculopathy. No recent trauma injury fever lumbar puncture or reported intravenous drug use. No focal motor weakness perineal anesthesia incontinence or other suggestions or red flag signs to suggest cauda equina syndrome, spinal epidural abscess or cord compression Plan for analgesia and reassessment Preliminary Favored Differential Diagnosis: Radiculopathy, lumbar strain, piriformis syndrome, hip thigh or gluteal strain , muscle spasm among additional considered etiologies Testing Interpreted Independently: ?See below for details Radiology or Lab testing Results Reviewed: ?See below for details Consults: ?See below for details Independent Historians/External Chart Reviews: ?See below for details Social Determinants of Health Impacting MDM/Planning: ?See below for details Lab Data 02/12/25 13:07 02/12/25 13:07 Labs: Lab Results 02/12/25 Range/Units 13:07 WBC 14.0 H (4.8-10.8) X10*3/uL RBC 4.73 (4.60-5.80) X10*6/uL Hgb 14.7 (14.0-18.0) g/dl Hct 42.2 (42.0-52.0) % MCV 89.2 (80.0-98.0) fL MCH 31.1 (27.0-33.0) pg MCHC 34.8 (31.0-36.0) g/dl RDW 12.4 (11.0-16.0) % Plt Count 204 (160-400) X10*3/uL MPV 9.2 L (9.4-12.4) fL Immature Gran % (Auto) 0.6 H (0.0-0.4) % Neut % (Auto) 87.7 H (45-73) % Lymph % (Auto) 8.4 L (20-40) % Morehouse % (Auto) 3.2 (2-11) % Eos % (Auto) 0.0 (0-4) % Baso % (Auto) 0.1 (0-2) % Lymph # (Auto) 1.2 (1.2-4.9) X10*3/uL [place]house # (Auto) 0.4 (0.1-1.2) X10*3/uL Eos # (Auto) 0.0 (0.0-0.4) X10*3/uL Baso # (Auto) 0.0 (0.0-0.2) X10*3/uL Abs Immat Gran (auto) 0.09 H (0.00-0.03) X10*3/uL Absolute Neuts (auto) 12.2 H (2.0-8.3) x10*3/uL Absolute Nucleated RBC 0.000 (0.0-0.012) X10*3/uL Nucleated RBC % (auto) 0.0 (0.0-0.2) /100WBC Sodium 137 (135-145) mmol/L Potassium 4.7 (3.3-5.1) mmol/L Chloride 107 (96-108) mmol/L Carbon Dioxide 22 (22-29) mmol/L Anion Gap 13 (12-20) BUN 18 H (9-16) mg/dL Creatinine 0.83 (0.5-1.4) mg/dL Estim Creat Clear Calc 131.6 Estimated GFR > 60 Random Glucose 182 H (60-115) mg/dL Calcium 9.1 (8.4-10.2) mg/dL Critical Care Time Critical Care Time Critical Care Time: Yes Total Critical Care Time: 30 Attestation: ED Critical Care: Severe back pain, parenteral opioid analgesics multiple dosing Authorized and Performed by: Ramón Lei MD Total critical care time: Approximately 30 Due to a high probability of clinically significant, life threatening deterioration, the patient required my highest level of preparedness to intervene emergently and I personally spent this critical care time directly and personally managing the patient. This critical care time included obtaining a history; examining the patient; pulse oximetry; ordering and review of studies; arranging urgent treatment with development of a management plan; evaluation of patient's response to treatment; frequent reassessment; and, discussions with other providers. This critical care time was performed to assess and manage the high probability of imminent, life-threatening deterioration that could result in multi-organ failure. It was exclusive of separately billable procedures and treating other patients and teaching time. Discharge Plan Discharge Clinical Impression: Lumbar radiculopathy Patient Disposition: Home, Self-Care Instructions: Acute Low Back Pain (ED), Lumbar Radiculopathy (ED) Additional Instructions: _ DISCHARGE DIAGNOSES: Left low back pain, likely sciatica/radiculopathy HISTORY OF PRESENTATION: ?Back pain without trauma or fall for 2 days EMERGENCY DEPARTMENT COURSE,TESTS, TREATMENTS: While in the ED today you received multiple medications including Valium, Dilaudid, steroid DISCHARGE MEDICATIONS: ?We have sent you home with several prescriptions see attached use the morphine only for severe breakthrough pain prefer ibuprofen or Tylenol FOLLOW-UP: ?Call your primary or general physician soon as possible to discuss your symptoms, your ED visit and to discuss follow up plans PCP or orthopedic/spine INSTRUCTIONS ?& RETURN PRECAUTIONS: If any symptoms change first call your primary physician, if it is after-hours your primary doctors office should have a provider honey liquefier you can speak with. If the symptoms are severe or very concerning to you then call 911 or return to the ED. [[id number]] Ramón Lei MD Emergency Physician [facility] Prescriptions: New cyclobenzaprine 10 mg tablet 10 mg PO TID PRN (Reason: muscle spasm) Qty: 14 0RF prednisone 20 mg tablet 60 mg PO DAILY 4 Days Qty: 12 0RF oxycodone 5 mg tablet 5 mg PO Q8H PRN (Reason: pain) Qty: 10 0RF Rx Instructions: Partial Fill upon patient request. No Action doxycycline hyclate 100 mg tablet 100 mg PO BID Qty: 20 0RF doxycycline hyclate 100 mg tablet 100 mg PO BID Qty: 20 0RF Referrals: [facility] Orthopedic Surgeons [Provider Group, Physiatry] Referral Note: Radiculopathy/sciatica Interventions: ED Discharge Assessment Last Done: 02/12/25 16:48 Discharge Date/Time: 02/12/25 16:50 Print Language: Danish
[2025-02-12] MEDS: diazePAM 10 MG/2 ML CARTRIDGE 5 MG IVPUSH (11:54)
--- OUTSIDE RECORDS SUMMARY | 2025-02-12 12:30 | XMS_ITS | Clinical Summary ---
Author Organization [facility] Address [address] [place] [address] Care Team Providers Care Drywall Contractor Name Role Phone Shine Kim DO Primary Care Provider [phone] Surgical History Surgery Date Site/Laterality Comments KNEE SURGERY 2000 PROCEDURE: HISTORICAL KNEE SURGERY; COMMENT: right knee ACL repar, bilateral meniscal repair 2014 OTHER SURGICAL HISTORY 1992 PROCEDURE: ---- OTHER ----; COMMENT: septic arthriits left ankle SHOULDER SURGERY 1995 Right PROCEDURE: HISTORICAL SHOULDER SURGERY HERNIA REPAIR 2018 PROCEDURE: REPAIR UMBILICAL HERNIA; COMMENT: with mesh Medical History Medical History Date Comments MRSA cellulitis 12/15/2019 DX:MRSA cellulit is; COMMENT: [place] for 1 week, [place] [facility] [place] [facility] [place] Family History Medical History Relation Name Comments Asthma Father Eczema Mother Other: allergic rhinitis Mother Relation Name Status Comments Father Mother Social History Tobacco Use Types Packs/Day Years Used Date Smoking Tobacco: Every Day Cigarettes Smokeless Tobacco: Never Sex and Gender Information Value Date Recorded Sex Assigned at Not on file Legal Sex Male 11:34 PM EST Gender Identity Not on file Sexual Orientation Not on file Obstetrics History Last Filed Vital Signs Vital Sign Reading Time Taken Comments Blood Pressure 134/86 01/31/2023 4:03 PM EDT Sitting L Arm Pulse 93 01/31/2023 4:03 PM EDT Temperature - - Respiratory Rate - - Oxygen Saturation - - Inhaled Oxygen Concentration - - Weight 136 kg (300 lb 6.4 oz) 4:03 PM EDT Height 182.9 cm (6') 01/31/2023 4:03 PM EDT Body Mass Index 40.74 01/31/2023 4:03 PM EDT Plan of Treatment Health Maintenance Due Date Last Done Comments Diabetes: Annual GFR (Glomer ular Filtration Rate) 1974 Diabetes: Annual Foot Exam 1984 Diabetes: Annual Retina Eye Exam 1984 DTaP,Tdap,and Td Vaccines (1 - Tdap) 1993 Hepatitis A Vaccines (1 of 2 - Risk 2-dose series) 1993 Hepatitis B Vaccines (1 of 3 - 19+ 3-dose series) 1993 Pneumococcal Vaccine: 50+ Ye ars (1 of 2 - PCV) 1993 Cholesterol Screening (Lipid Panel) 05/21/2022 Colorectal Cancer Screening: Colonoscopy 05/21/2022 HIV Screening 05/21/2022 Hepatitis C Screening 05/21/2022 Social Influencers of Health Screening 05/21/2022 Diabetes: Annual Urine Albumin-Creatinine Ratio (uACR) 06/03/2022 Diabetes: Blood Sugar Contro l Test (HGBA1C) 06/03/2022 Hypertension/CHF/CAD Annual BMP Blood Test 06/03/2022 COVID-19 Vaccine (1 - 2023-2 5 season) 2024 Depression Screening 06/18/2024 Zoster Vaccines (1 of 2) 2024 Influenza Vaccine (#1) 2025 HIB Vaccines Aged Out No longer eligi ble based on patient's age to complete this topic HPV Vaccines Aged Out No longer eligi ble based on patient's age to complete this topic IPV Vaccines Aged Out No longer eligi ble based on patient's age to complete this topic MMR Vaccines Aged Out No longer eligi ble based on patient's age to complete this topic Meningococcal ACWY Vaccine Aged Out N o longer eligible based on patient's age to complete this topic Meningococcal B Vaccine Aged Out No l onger eligible based on patient's age to complete this topic RSV Immunization Patients Un pako 20 months Aged Out No longer eligible b ased on patient's age to complete this topic Varicella Vaccines Aged Out No longer eligible based on patient's age to complete this topic Care Teams Drywall Contractor Relationship Specialty Start Date End Date Shine Kim DO [address] [place] [phone] PCP - General Internal Medicine 12/14/20
--- OUTSIDE RECORDS SUMMARY | 2025-02-12 12:30 | XMS_ITS | Encounter Summary ---
Author Organization [facility] Address [address] [place] [address] Encounters * CPT with [facility] on 2025-02-11 Brandyn called into [facility] stating that he is in severe pain, he almost called 911 yesterday but did not.He states he has about 200 bone spurs in his 11/ 12 disc and Neuropathy, he states he has a pinchednerve. He states he does not take narcotics. Last night he placed frozen bags of veggies on the area very little relief. He states he is in 10/10 pain, he is beyond himself and states he can not move. Brandyn states the pain travels from his left buttock, around his flank/ waist and travels down his LLE to his knee. He states he is going to try to get an appt with a chiropractor but first needs relief so he can move. { reasonForRequest : pain , patientReports : , denies :[], chiefComplaints : Extremity Pain , pmh : Chronic BackPain , allergies : No Known Drug Allergies , otherAllergies :&quo t; , painAssessment : , visitOutcome : , additionalComments : HPI reviewed } Patient alert and oriented complains of lower back pain radiating to left lower leg. Patient reports acute on chronic worse times 36 hours. Patient not aware of specific recent injury reports pain came on gradually. Patient reports taking gabapentin. Patient denies any other pain or complaints reports normal mobility. Patient pink warm, dry secondary exam unremarkable good CSM in the left leg, positive full sentences negative increase work of breathing. No edema noted. Patient reports no anticoagulant, no recent ibuprofen use, no history of kidney problems. Medication administered as ordered without complication using five rights. Patient reports to follow up with PCP SHON. Patient demonstrates understanding of care and plan. IV_(FLUIDS_AND/OR_MEDICATION), MEDICATION_IM, ORAL_MEDICATION, WOUND_CARE, ORTHOSTATIC_VITAL_SIGNS Written by [facility] on 2025-02-11
--- OUTSIDE RECORDS SUMMARY | 2025-02-12 12:30 | XMS_ITS | Clinical Summary ---
Author Organization [employer] Address [address] [place] [address] Care Team Providers Care Frame Bander Name Role Phone Unavailable Primary Care Provider Unavailabl e Allergies No known active allergies Medications chlorhexidine (Peridex) 0.12 % solution Please use 15 ml solution orally every night before sleep as mouthwash. Swish for 30 seconds and spit. Do not rinse. 120 mL 08/29/2023 Active Social History Tobacco Use Types Packs/Day Years Used Date Smoking Tobacco: Every Day Cigarettes Smokeless Tobacco: Never Tobacco Cessation:Ready to Q uit: Not Asked; Counseling Given: Not Answered Alcohol Use Standard Drinks/Week Comments Never 0 (1 standard drink = 0.6 oz pur e alcohol) Sex and Gender Information Value Date Recorded Sex Assigned at Male 04/17/2022 10:34 AM EDT Legal Sex Male 10:34 AM EDT Gender Identity Male 04/17/2022 10:34 AM EDT Sexual Orientation Straight 04/17/2022 10 :34 AM EDT Last Filed Vital Signs Vital Sign Reading Time Taken Comments Blood Pressure 140/90 08/29/2023 8:23 AM EDT Pulse - - Temperature - - Respiratory Rate - - Oxygen Saturation - - Inhaled Oxygen Concentration - - Weight - - Height - - Body Mass Index - - Plan of Treatment Health Maintenance Due Date Last Done Comments CT Colonography 1974 Colonoscopy 1974 Colorectal Cancer Screening 1974 Dental Prophylaxis 1974 Depression Screening 1974 FIT DNA/Cologuard 1974 FIT 1974 FOBT 1974 HIV Screening 1974 Lipid Panel 1974 SDOH Screening 1974 Sigmoidoscopy 1974 Disability Screening 1974 Alcohol/Substance Use Screening 1986 Family Planning (PISQ) 1989 Hepatitis C Screening 1992 DTaP/Tdap/Td Vaccines (1 - Tdap) 1993 Hepatitis B Vaccines (1 of 3 - 19+ 3-dose series) 1993 Pneumococcal Vaccine: 50+ Years (2 of 2 - PCV) 06/03/2019 06/03/2018 COVID-19 Vaccine (1 - 2023-2 5 season) 2024 Dental Oral Exam 03/09/2024 09/06/2023 Zoster Vaccines (1 of 2) 2024 Tobacco Screening 09/05/2024 09/06/2023 Dental X-Ray: Bitewings 09/06/2024 09/06/19 24, 07/21/2021, 04/04/2018 Influenza Vaccine (#1) 2025 8, 03/07/2013 Dental X-Ray: Full Mouth 09/06/2026 09/06/2023 RSV Patients and Patients Aged 60 years or older (1 - 1-dose 75+ series) 2049 HIB Vaccines Aged Out No longer eligi ble based on patient's age to complete this topic HPV Vaccines Aged Out No longer eligi ble based on patient's age to complete this topic Hepatitis A Vaccines Aged Out No long er eligible based on patient's age to complete this topic IPV Vaccines Aged Out No longer eligi ble based on patient's age to complete this topic Meningococcal B Vaccine Aged Out No l onger eligible based on patient's age to complete this topic Meningococcal Vaccine Aged Out No muna kala eligible based on patient's age to complete this topic RSV under 20 months Aged Out No longe r eligible based on patient's age to complete this topic Rotavirus Vaccines Aged Out No longer eligible based on patient's age to complete this topic Procedures Procedure Name Priority Date/Time Associated Diagnosis Comments INTRAORAL - COMPLETE SERIES OF RADIOGRAPHIC IMAGES Routine 09/06/2023 10:00 AM EDT COMPREHENSIVE ORAL EVALUATION - NEW OR ESTABLISHED PATIENT Routine 09/06/2023 10:00 AM EDT from Last 3 Months or Most Recently Relevant to Health Maintenance Insurance [facility]
--- OUTSIDE RECORDS SUMMARY | 2025-02-12 12:30 | XMS_ITS | Continuity of Care Document ---
Author Name [facility], [facility] Address [address] [place] [id number] Organization Unknown Address [address] [place] [id number] Medications No known medications Problems No known problems
[2025-02-12 13:04] VITALS: BP 144/84; PULSE 80; RESP 18; TEMP 36.9; O2SAT 97
[2025-02-12 13:13] LABS: MANUAL DIFF FLAG NO
[2025-02-12 13:16] LABS: Hematocrit 42.2 % (42.0-52.0); Hemoglobin 14.7 g/dl (14.0-18.0); Imm Gran Abs Auto 0.09 X10*3/uL (0.00-0.03); Imm Gran Pct Auto 0.6 % (0.0-0.4); Lymphocytes Absolute Auto 1.2 X10*3/uL (1.2-4.9); Mean Corpuscular HGB Conc 34.8 g/dl (31.0-36.0); Mean Corpuscular Hemoglobin 31.1 pg (27.0-33.0); Mean Corpuscular Volume 89.2 fL (80.0-98.0); NRBC Abs Auto 0.000 X10*3/uL (0.0-0.012); NRBC Pct Auto 0.0 /100WBC (0.0-0.2); Platelet Count 204 X10*3/uL (160-400); Red Blood Count 4.73 X10*6/uL (4.60-5.80); White Blood Count 14.0 X10*3/uL (4.8-10.8)
[2025-02-12 13:43] LABS: Anion Gap 13 (12-20); Blood Urea Nitrogen 18 mg/dL (9-16); Calcium 9.1 mg/dL (8.4-10.2); Carbon Dioxide 22 mmol/L (22-29); Chloride 107 mmol/L (96-108); Creatinine Clr Calc Pharmacy 131.6; Estimated Glomerular Filt Rate > 60; Potassium 4.7 mmol/L (3.3-5.1); Sodium 137 mmol/L (135-145)
--- NOTE | 2025-02-12 14:55 | PC.NURSE ---
Pt refusing PO morphine, wants oxycodone instead, provider made aware.
[2025-02-12] MEDS: oxyCODONE HCl Immed Release 5 MG TABLET 10 MG PO (15:01)
[2025-02-12] MEDS: Lidocaine 4 % Patch ADH..PATCH 1 PATCH TRANSDERMA (15:02)
[2025-02-12] MEDS: diazePAM 10 MG/2 ML CARTRIDGE 2.5 MG IVPUSH (15:02)
[2025-02-12 15:59] VITALS: BP 152/91; PULSE 80; RESP 14; TEMP 37; O2SAT 96
[2025-02-12] MEDS: oxyCODONE HCl ER 10 MG TAB.ER.12H PO (16:37)
[2025-02-12 16:48] VITALS: BP 152/91; PULSE 80; RESP 14; TEMP 37; O2SAT 96
== END 2025-02-12 16:50 | disposition home or self-care (01) ==
PROVIDERS: Emergency Provider Emergency Medicine; PCP Internal Medicine
DX: M54.16 Radiculopathy, lumbar region (principal); M54.32 Sciatica, left side; J44.9 Chronic obstructive pulmonary disease, unspecified; I10 Essential (primary) hypertension; E11.9 Type 2 diabetes mellitus without complications; Z79.899 Other long term (current) drug therapy
CPT/HCPCS: 36415; 80048; 85025; 96365; 96375; 96376; 99285; J0131; J1100; J1171; J1885; J3360

== ENCOUNTER 2025-02-22 10:16 | Observation (INO) | payer OTHER, SELFPAY ==
--- NOTE | ~2025-02-22 | CT_ITS ---
CLINICAL HISTORY: back pain, left sided radiculopathy CT lumbar spine without contrast Comparison: None provided Findings: Vertebral alignment is within normal limits. No acute fractures or dislocations. Multilevel degenerative disc disease and facet osteoarthritis. Mild central canal stenosis at L4-L5 secondary to a broad-based disc bulge and facet osteoarthritis. Moderate stenosis of bilateral neural foramina at L5-S1 secondary to a broad-based disc bulge and facet osteoarthritis. Remaining levels demonstrate no significant narrowing of the central canal or neural foramina. Visualized abdominal contents unremarkable. IMPRESSION: No acute abnormality of the lumbar spine. Degenerative changes as above. This document has been electronically signed by: Maria Elena Hamm MD on 02/22/2025 13:37:01
--- NOTE | ~2025-02-22 | US_ITS ---
CLINICAL HISTORY: left calf pain Venous duplex ultrasound left lower extremity Comparison: None provided Findings: The visualized deep veins are fully compressible with normal Doppler color flow and spectral tracings. No popliteal cyst. IMPRESSION: 1. Negative for left lower extremity deep vein thrombosis. This document has been electronically signed by: Maria Elena Hamm MD on 02/22/2025 16:27:00
--- NOTE | ~2025-02-22 | MR_ITS ---
EXAM: MRI Lumbar Spine without Contrast. TECHNIQUE: Multiplanar multisequence MR imaging was performed through the lumbar spine without contrast. INDICATION: Severe low back pain PRIOR: CT from one day earlier FINDINGS: 5 non-rib bearing lumbar segments are present on CT. Marrow and end-plates: Modic 2 signal changes present anteriorly at L2-3 and minimally at L3-4. Alignment: There is subtle retrolisthesis at L5-S1. Soft tissues: There is nonspecific bland appearing subcutaneous soft tissue edema through the lumbar region. There is low level edema in left paraspinal muscles at L3, L4, and upper L5. There is trace fluid signal in the soft tissues interposed between the L4 and L5 spinous processes without marrow signal changes in the spinous processes. Conus: The termination of conus medullaris is within normal limits at the level of L1. T12-L1: There is no disc bulge, herniation, spinal stenosis, or foraminal narrowing. L1-L2: There is no disc bulge, herniation, spinal stenosis, or foraminal narrowing. L2-L3: There is mild loss disc height and minimal disc desiccation with circumferential broad-based disc bulge not resulting in spinal stenosis or foraminal narrowing. L3-L4: There is minimal circumferential broad-based disc bulge without spinal stenosis. There is mild right and moderate left foraminal narrowing. L4-L5: There is mild circumferential broad-based disc bulge and moderate facet arthropathy with left facet joint effusion. There is no spinal stenosis. There is mild bilateral foraminal narrowing. L5-S1: There is small central disc extrusion and mild facet degeneration with trace fluid in the left facet joint not resulting in spinal stenosis. There is mild to moderate bilateral foraminal narrowing, greater on the right. MR/MR lumbar spine wo con IMPRESSION: L3-L4: There is mild right and moderate left foraminal narrowing. L4-L5: There is left facet joint effusion. L5-S1: There is small central disc extrusion and mild to moderate bilateral foraminal narrowing, greater on the right. There is nonspecific edema in the left paraspinal muscles along the lower lumbar spine. This could be related to a grade 1 strain. Electronically signed by: Russ Acosta MD 02/23/2025 01:27 PM EDT
[2025-02-22 10:22] VITALS: BP 152/102; BP 190/100; PULSE 104; PULSE 98; RESP 20; TEMP 36.9; O2SAT 97; O2SAT 98; BMI 31.9
--- NOTE | 2025-02-22 10:22 | ED_ITS ---
HPI - General Adult General Chief complaint: Extremity Injury, Lower Stated complaint: LLE PAIN,H/O NEUROPATHY,BP 190/100 PER EMS Time Seen by Provider: 02/22/25 10:22 Source: patient and RN notes reviewed Mode of arrival: ambulatory Limitations: no limitations History of Present Illness ED Provider: Mago Simpson PA-C HPI narrative: This is a 49-year-old male, with a past medical history of anxiety, asthma, COPD, hypertension, PTSD, who presents emergency department via EMS with concerns of left low back pain and left leg pain. Patient states that he has a history of degenerative disc disease, and states that over the last 2 weeks he has had worsening left low back pain. He states that the pain starts in his left low back and radiates down his left leg. Patient reports that the pain worsened significantly when walking. Denies any weakness in his legs. He does report numbness and tingling. No numbness and tingling into the groin. No urinary or bowel retention or incontinence. No fevers or chills. No injury. No urinary symptoms. No fevers or chills. No history of IVDA. No other complaints or concerns at this time. MD complaint: Back pain Onset (ago): day(s) Associated symptoms: denies other symptoms Treatments prior to arrival: none Related Data Previous Rx's ?Medication ?Instructions ?Recorded doxycycline hyclate 100 mg tablet 100 mg PO BID #20 ta bs 09/28/20 doxycycline hyclate 100 mg tablet 100 mg PO BID #20 ta bs 03/23/21 cyclobenzaprine 10 mg tablet 10 mg PO TID PRN muscle s pasm #14 02/12/25 tabs oxycodone 5 mg tablet 5 mg PO Q8H PRN pain #10 tab s 02/12/25 prednisone 20 mg tablet 60 mg (3 x 20 mg) PO DAILY 4 days 02/12/25 #12 tabs Allergies Allergy/AdvReac Type Severity Reaction Status Date / Time grass pollen Allergy Itching Verified 02/22/25 10:31 mold Allergy Itching Verified 02/22/25 10:31 weed pollen Allergy Itching Verified 02/22/25 10:31 Review of Systems 2 Review of Systems: Constitutional : No Fever, No Chills ENT/Mouth : No sore throat, No Rhinorrhea Eyes: No Eye Pain, No Swelling, No Redness Cardiovascular : No Chest Pain, No SOB Respiratory : No Cough, No Sputum Gastrointestinal : No Nausea, No Vomiting, No Diarrhea, No abdominal Pain Genitourinary : No Dysuria, No Hematuria Musculoskeletal : No joint pain, No Myalgias, No Joint Swelling Skin : No Skin Lesions, positive skin rash Neuro : No Weakness, + Numbness, No Headache All other systems reviewed and are negative Yes all other systems are reviewed and are negative Constitutional: Constitutional: Reports as per HPI, Denies body ache(s), Denies chills and Denies fever(s) Eyes: Eyes: Reports as per HPI, Denies change in vision and Denies eye discharge ENT: Reports system reviewed and no additional complaints, except as documented, Reports as per HPI, Reports Normal hearing present and Denies facial pain Cardiovascular: Cardiovascular: Reports as per HPI and Denies chest pain Respiratory: Respiratory: Reports as per HPI and Denies cough Gastrointestinal: Gastrointestinal: Reports as per HPI, Reports no additional gastrointestinal complaints, Denies abdominal pain, Denies diarrhea, Denies nausea and Denies vomiting Genitourinary: Genitourinary: Reports as per HPI Musculoskeletal: Musculoskeletal: Reports no additional musculoskeletal complaints and Reports as per HPI Integumentary/Breasts: Skin/Breast: Reports system reviewed and no additional complaints, except as docu, Reports as per HPI, Reports erythema, Denies rash and Denies wounds Neurologic: Reports Normal hearing present Psychiatric: Psychiatric: Reports no additional psychiatric complaints and Reports as per HPI Endocrine: Endocrine: Reports no additional endocrine complaints and Reports as per HPI Hematologic/Lymphatic: Hematologic/Lymphatic: Reports no additional hematologic/lymphatic complaints and Reports as per HPI Allergic/Immunologic: Allergic/Immunologic: Reports no additional allergic/immunologic complaints and Reports as per HPI [facility] Past Medical History Attestation statement: The following information was validated with the patient. Medical History Chronic pain COPD (chronic obstructive pulmonary disease) Asthma Thyroid activity decreased Carpal tunnel syndrome Neuropathy Sleep apnea HTN (hypertension) Opiate dependence Anxiety GERD (gastroesophageal reflux disease) Diabetes PTSD (post-traumatic stress disorder) Depression Suicide attempt Social History Social History Alcohol intake: unknown Patient Tobacco Use Status: Tobacco use Unknown Smoked in Last 30 Days: No Use of substances other than those prescribed or required for medical reasons: No Advance Directives: No Advance Directives Information Provided: Yes Do you have a plan to hurt others: No Plan Physical Exam ED Vital Signs: Vital Signs - 24 hr 02/22/25 10:22 02/22/25 10:35 02/22/25 14:38 Temperature 98.5 F 98.5 F Pulse Rate 98 98 101 H Respiratory Rate 20 20 18 Blood Pressure 152/102 H 152/102 H 157/120 H Pulse Oximetry 98 98 97 Oxygen Delivery Method Room Air Room Air Room Air 02/22/25 17:26 Temperature Pulse Rate 91 Respiratory Rate 16 Blood Pressure 147/106 H Pulse Oximetry 97 Oxygen Delivery Method Room Air BMI result Body Mass Index 31.9 Const General: cooperative, comfortable and no acute distress Orientation/consciousness: patient oriented x3 Limitations: no limitations HENMT Head: Yes normal to inspection, Yes normocephalic and Yes atraumatic Ears: hearing grossly normal bilaterally General nose exam: Normal external nose present Face and sinus: Yes normal facial exam Mouth: Normal oral and palatal mucosa present, oropharynx normal and moist mucous membranes Throat: Yes posterior oropharynx normal Eyes General: appearance normal, both eyes and all related structures Eyelids: Yes eyelids normal Conjunctivae: conjunctivae normal Sclerae: sclerae normal Pupils: Equal, round and reactive pupils present EOM: EOMs intact bilaterally Neck Neck: Yes normal visual inspection, Yes full ROM and Yes no lymphadenopathy Lymphatic: no lymphadenopathy noted Chest Chest palpation & inspection: normal inspection of the chest Resp Effort & Inspection: normal respiratory effort and able to speak in complete sentences Auscultation: clear to auscultation bilaterally Cardio Rate: regular rate Rhythm: regular rhythm Heart sounds: S1 normal heart sound present and S2 normal heart sound present GI Other: Abdomen is soft, nontender, nondistended Inspection: Yes normal to inspection Back/Spine/Pelvis Other: Tenderness palpation along the left SI joint, positive straight leg raise on the left. Skin General skin exam: no rashes or lesions noted Trauma: no lacerations or abrasions Wounds: no wounds Neuro General: patient oriented x3 and moves all extremities Cranial nerves: Yes Equal, round and reactive pupils present and Yes Normal hearing present Extrem Other: Strength 5/5 in lower extremities. No pitting edema, mild left calf tenderness. General: Yes normal to inspection Right upper extremity: normal to inspection Left upper extremity: normal to inspection Left lower extremity: normal to inspection Course Reevaluation(s) Reevaluation #1: 7:29 PM 02/22/2025 (Martín BARFIELD): Patient was signed out to this provider at shift change, in summary the patient is a 49 year old male with history of chronic back pain, anxiety, asthma, COPD, hypertension, and PTSD, presenting for evaluation of left low back pain x 2 weeks, worsening over the last several days. No injury or trauma. In the ED today patient received tylenol, dilaudid x 2, toradol, morphine, valium, and oxy without any relief. Patient reportedly was also seen here 02/12 for same complaints without any relief from pain meds. No concern for cauda equina or epidural abscess. CT lumbar spine unremarkable, ultrasound left lower extremity negative for DVT. The patient is reporting he has been unable to get out of bed due to back pain. Patient is signed out pending laboratory evaluation with the plan for admission for intractable back pain. Patient's laboratory evaluation has now resulted and shows no leukocytosis, significant anemia, electrolyte abnormality, or BRIAN. The patient's LFTs are unremarkable, CRP is mildly elevated at 1.1, ESR is negative. Patient will be admitted for intractable back pain. Medications Administered Discontinued Medications Generic Name Dose Route Start Last Admin Trade Name Job PRN Reason Stop Dose Admin Dexamethasone Sodium Phosphate 10 mg 02/22/25 10:40 02/22/25 11:14 Dexamethasone Sod Phosphate 10 Mg/Ml Vial IVPUSH 02/22/25 10:41 10 mg ONCE ONE Administration Diazepam 5 mg 02/22/25 10:40 02/22/25 11:15 Diazepam 10 Mg/2 Ml Cartridge IVPUSH 02/22/25 10:41 5 mg STAT STA Administration Hydromorphone HCl 1 mg 02/22/25 12:02 02/22/25 12:32 Hydromorphone Hcl 1 Mg/Ml Syringe IVPUSH 02/22/25 12:03 1 mg ONCE ONE Administration Protocol Hydromorphone HCl 1 mg 02/22/25 14:58 02/22/25 15:08 Hydromorphone Hcl 1 Mg/Ml Syringe IVPUSH 02/22/25 14:59 1 mg ONCE ONE Administration Protocol Acetaminophen 1,000 mg in 100 mls @ 400 mls/hr 02/22/25 10:40 02/22/25 12:31 Ofirmev IV 02/22/25 10:54 Infused ONCE ONE Infusion Ketorolac Tromethamine 15 mg 02/22/25 12:24 02/22/25 12:32 Ketorolac Tromethamine 15 Mg/Ml Vial IVPUSH 02/22/25 12:25 15 mg ONCE ONE Administration Morphine Sulfate 4 mg 02/22/25 10:41 02/22/25 11:14 Morphine Sulfate 4 Mg/Ml Cartridge IVPUSH 02/22/25 10:42 4 mg ONCE ONE Administration Protocol Oxycodone HCl 10 mg 02/22/25 17:12 02/22/25 17:28 Oxycodone Hcl Immed Release 5 Mg Tablet PO 02/22/25 17:13 10 mg ONCE ONE Administration Medical Decision Making Medical Decision Making [facility] Narrative: This is a 49-year-old male who presents emergency department with concerns of low back pain and left leg pain. On arrival, patient's blood pressure elevated at 152/102, all other vital signs within normal limits, he is speaking full sentences under no acute distress. Patient was seen here on February 12, 2025 and was discharged on muscle relaxants, prednisone and oxycodone. He states that this only helped for several days. He attempted to follow-up with his primary care physician however has been unable to get into their office. Orthopedics was also consulted however they are unable to see him until June. Will medicate with Decadron, morphine, Valium, and Tylenol. We will also obtain x- rays. We will continue to closely monitor. He has no red flag back symptoms. This patient presents with back pain most consistent with lumbar radiculopathy. Differential diagnoses includes lumbago versus musculoskeletal spasm / strain versus sciatica. No back pain red flags on history or physical. Presentation not consistent with malignancy (lack of history of malignancy, lack of B symptoms), fracture (no trauma, no bony tenderness to palpation), cauda equina syndrome (no bowel or urinary incontinence/retention, no saddle anesthesia, no distal weakness), pulmonary embolism, renal colic, pyelonephritis (afebrile, no CVAT, no urinary symptoms). 5:44 PM 02/22/2025 (Mago Simpson PA-C): Patient with intractable back pain despite multiple medications including a total of Dilaudid 2 mg IV push, Toradol, morphine, Decadron, Valium. He is still unable to get off the bed due to pain in his back, not weakness in his legs. CT lumbar spine revealing Multilevel degenerative disc disease and facet osteoarthritis. Mild central canal stenosis at L4-L5 secondary to a broad-based disc bulge and facet osteoarthritis. Moderate stenosis of bilateral neural foramina at L5-S1 secondary to a broad-based disc bulge and facet osteoarthritis. Remaining levels demonstrate no significant narrowing of the central canal or neural foramina. Discussed findings with patient. Ultrasound of the left lower extremity revealing no DVT. Given intractable pain despite multiple medications, patient requiring admission. He is agreeable for admission. Given that hopefully we will admit patient, will obtain basic labs. Sign-out given to my colleague, Neri Gunter PA-C pending labs +/- admission for intractable pain. Differential Diagnosis Differential Diagnoses: The differential diagnosis associated with the presentation includes See above Lab Data 02/22/25 18:43 02/22/25 18:43 Labs: Lab Results 02/22/25 Range/Units 18:43 WBC 7.8 (4.8-10.8) X10*3/uL RBC 4.55 L (4.60-5.80) X10*6/uL Hgb 14.1 (14.0-18.0) g/dl Hct 39.5 L (42.0-52.0) % MCV 86.8 (80.0-98.0) fL MCH 31.0 (27.0-33.0) pg MCHC 35.7 (31.0-36.0) g/dl RDW 12.4 (11.0-16.0) % Plt Count 170 (160-400) X10*3/uL MPV 9.2 L (9.4-12.4) fL Immature Gran % (Auto) 0.4 (0.0-0.4) % Neut % (Auto) 91.7 H (45-73) % Lymph % (Auto) 6.8 L (20-40) % Irion % (Auto) 1.0 L (2-11) % Eos % (Auto) 0.0 (0-4) % Baso % (Auto) 0.1 (0-2) % Lymph # (Auto) 0.5 L (1.2-4.9) X10*3/uL Irion # (Auto) 0.1 (0.1-1.2) X10*3/uL Eos # (Auto) 0.0 (0.0-0.4) X10*3/uL Baso # (Auto) 0.0 (0.0-0.2) X10*3/uL Abs Immat Gran (auto) 0.03 (0.00-0.03) X10*3/uL Absolute Neuts (auto) 7.2 (2.0-8.3) x10*3/uL Absolute Nucleated RBC 0.000 (0.0-0.012) X10*3/uL Nucleated RBC % (auto) 0.0 (0.0-0.2) /100WBC Smear Tech's Comments VERIFIED ESR 8 (0-15) MM/HR Sodium 136 (135-145) mmol/L Potassium 4.9 (3.3-5.1) mmol/L Chloride 107 (96-108) mmol/L Carbon Dioxide 19 L (22-29) mmol/L Anion Gap 15 (12-20) BUN 17 H (9-16) mg/dL Creatinine 0.80 (0.5-1.4) mg/dL Estim Creat Clear Calc 139.3 Estimated GFR > 60 Random Glucose 208 H (60-115) mg/dL Calcium 8.7 (8.4-10.2) mg/dL Total Bilirubin 0.4 (0.0-1.0) mg/dL AST 19 (5-37) U/L ALT 23 (0-40) U/L Alkaline Phosphatase 68 (39-117) U/L C-Reactive Protein 1.11 H (< or = 0.50) mg/dL Total Protein 6.8 (6.5-8.0) g/dL Albumin 4.2 (3.5-5.0) g/dL Radiology Impression Discussion of test interpretation with radiology: I have reviewed the radiologist's reading. Radiologist Impression: Findings: The visualized deep veins are fully compressible with normal Doppler color flow and spectral tracings. No popliteal cyst. IMPRESSION: 1. Negative for left lower extremity deep vein thrombosis. This document has been electronically signed by: Maria Elena Hamm MD on 02/22/2025 16:27:00 Dictated By: Maria Elena Hamm MD Findings: Vertebral alignment is within normal limits. No acute fractures or dislocations. Multilevel degenerative disc disease and facet osteoarthritis. Mild central canal stenosis at L4-L5 secondary to a broad-based disc bulge and facet osteoarthritis. Moderate stenosis of bilateral neural foramina at L5-S1 secondary to a broad-based disc bulge and facet osteoarthritis. Remaining levels demonstrate no significant narrowing of the central canal or neural foramina. Visualized abdominal contents unremarkable. IMPRESSION: No acute abnormality of the lumbar spine. Degenerative changes as above. This document has been electronically signed by: Maria Elena Hamm MD on 02/22/2025 13:37:01 Dictated By: Maria Elena Hamm MD Critical Care Time Critical Care Time Critical Care Time: Yes Total Critical Care Time: 45 Attestation: I have personally provided critical care time exclusive of time spent on separately billable procedures. Time includes review of lab data, radiology results, discussion with consultants, and monitoring for potential decompensation. Intervention performed as documented. Discharge Plan Discharge Clinical Impression: Intractable back pain Patient Disposition: Admitted As Inpatient Print Language: Liberian
[2025-02-22 10:35] VITALS: BP 152/102; PULSE 98; RESP 20; TEMP 36.9; O2SAT 98
--- NOTE | 2025-02-22 10:37 | PC.NURSE ---
49 M presents to ED with lower back and LLE pain, radiates from lower back to L knee and L foot for over 8 days, pain 10/10. A+Ox4, anxious, cooperative. Hx neuropathy. RR even and unlabored, denies CP or SOB. Pt sts difficulty ambulating at home, unable to get call back from PCP.
--- OUTSIDE RECORDS SUMMARY | 2025-02-22 10:44 | XMS_ITS | Continuity of Care Document ---
Author Name [facility], Medical Address [address] [place] [id number] Organization Unknown Address [address] [place] [id number] Medications No known medications Problems No known problems
--- OUTSIDE RECORDS SUMMARY | 2025-02-22 10:44 | XMS_ITS | Clinical Summary ---
Author Organization [facility] Address [address] [place] [address] Care Team Providers Care Fur Glazer Name Role Phone Shine Kim DO Primary Care Provider [phone] Surgical History Surgery Date Site/Laterality Comments KNEE [...] Hospitalized for 1 week, required surgical drainage, [facility] [place] Family History Medical History Relation [...] 06/03/2022 Hypertension/CHF/CAD Annual BMP Blood Test 06/03/2022 Depression Screening 06/18/2024 Zoster Vaccines (1 of 2) 2024 COVID-19 Vaccine (1 - 2023-2 5 season) 2025 Influenza Vaccine (#1) 2025 HIB Vaccines Aged [...] age to complete this topic Care Teams Fur Glazer Relationship Specialty Start Date End Date Shine Kim DO [address] [place] [phone] PCP - General Internal Medicine 12/14/20
--- OUTSIDE RECORDS SUMMARY | 2025-02-22 10:44 | XMS_ITS | Clinical Summary ---
Author Organization [employer] Address [address] [facility] [address] [place] [address] Care Team Providers Care Gi Asst Name Role Phone Unavailable Primary Care Provider [...] (2 of 2 - PCV) 06/03/2019 06/03/2018 Dental Oral Exam 03/09/2024 09/06/2023 Zoster Vaccines (1 of 2) 2024 Tobacco Screening 09/05/2024 09/06/2023 Dental X-Ray: Bitewings 09/06/2024 09/06/19 24, 07/21/2021, 04/04/2018 COVID-19 Vaccine (1 - 2023-2 5 season) 2025 Influenza Vaccine (#1) 2025 8, 03/07/2013 Dental [...] Most Recently Relevant to Health Maintenance Insurance [facility] Member Subscriber [facility] / [facility] Name:Brandyn Roy Relation to Subscriber:Self Name:Brandyn Roy Payer ID:Not on file Group ID:[id number] Type:Not on file Address: [place] [address] [id number] [place] [facility] Member Subscriber Plan / Payer [facility]21[facility]Present) Name:Brandyn Roy Relation to Subscriber:Self Name:Brandyn Roy Payer ID:Not on file Group ID:[id number] Type:Not on file Address: [place] [address]
[2025-02-22] MEDS: diazePAM 10 MG/2 ML CARTRIDGE 5 MG IVPUSH (11:15)
[2025-02-22 14:38] VITALS: BP 157/120; PULSE 101; RESP 18; O2SAT 97
[2025-02-22 17:26] VITALS: BP 147/106; PULSE 91; RESP 16; O2SAT 97
[2025-02-22] MEDS: oxyCODONE HCl Immed Release 5 MG TABLET 10 MG PO ×2 (17:28→23:26)
[2025-02-22 18:50] LABS: Hematocrit 39.5 % (42.0-52.0); Hemoglobin 14.1 g/dl (14.0-18.0); Imm Gran Abs Auto 0.03 X10*3/uL (0.00-0.03); Imm Gran Pct Auto 0.4 % (0.0-0.4); Lymphocytes Absolute Auto 0.5 X10*3/uL (1.2-4.9); MANUAL DIFF FLAG SCAN; Mean Corpuscular HGB Conc 35.7 g/dl (31.0-36.0); Mean Corpuscular Hemoglobin 31.0 pg (27.0-33.0); Mean Corpuscular Volume 86.8 fL (80.0-98.0); NRBC Abs Auto 0.000 X10*3/uL (0.0-0.012); NRBC Pct Auto 0.0 /100WBC (0.0-0.2); Platelet Count 170 X10*3/uL (160-400); Red Blood Count 4.55 X10*6/uL (4.60-5.80); SCAN SMEAR FLAG 1; White Blood Count 7.8 X10*3/uL (4.8-10.8)
[2025-02-22 19:04] LABS: Alanine Aminotransferase 23 U/L (0-40); Albumin Level 4.2 g/dL (3.5-5.0); Alkaline Phosphatase 68 U/L (39-117); Anion Gap 15 (12-20); Aspartate Amino Transferase 19 U/L (5-37); Blood Urea Nitrogen 17 mg/dL (9-16); Calcium 8.7 mg/dL (8.4-10.2); Carbon Dioxide 19 mmol/L (22-29); Chloride 107 mmol/L (96-108); Creatinine Clr Calc Pharmacy 139.3; Estimated Glomerular Filt Rate > 60; Potassium 4.9 mmol/L (3.3-5.1); Sodium 136 mmol/L (135-145); Total Protein 6.8 g/dL (6.5-8.0)
--- NOTE | 2025-02-22 20:19 | PC.NURSE ---
discussed history of taking gabapentin for LLE neuropathic pain but stopped. has not been ordered any this stay. ordered by CAROLYNE Gunter. pt accepted med willingly and expressed thanks. call linton in reach. provided with food and water on request
--- NOTE | 2025-02-22 21:17 | P.HPHOSP_ITS ---
History of Present Illness Date of Service: 02/22/25 Attending physician on admission: Kareen Delcid Chief Complaint: LLE pain Patient is a 49-year-old male with a past medical history significant for class 1 obesity, chronic back pain, anxiety, mild intermittent asthma, HTN (no longer needing medication), type 2 diabetes (no longer on medication), PTSD and degenerative disc disease, who presented to the ED again due to worsening left lower extremity pain. The patient reports numbness and tingling to the left lower extremity and extreme sensitivity in the left knee. He denies any injury or trauma. He was taking gabapentin 3 times daily however reports that he ran out of this prescription and has not taken it it a few days. He reports fluctuating chills/sweats but no nausea or vomiting. No urinary symptoms including frequency, urgency or dysuria. He has had issues with nocturnal incontinence for many years. No bowel incontinence. He notes bone spurs at T11-T12 and significant low back issues including neuropathy. In the emergency department he did not have any improvement with dexamethasone, morphine, Valium, Tylenol, ketorolac, Dilaudid, oxycodone or recent dose of gabapentin. ESR was normal, CRP elevated at 1.11, glucose elevated and bicarb of 19. Patient reports that he has not had much to eat or drink today as he has been in the emergency room. He is no longer taking medications for hypertension or type 2 diabetes, he reports that these have been managed with diet since losing weight. Review of Systems 2 Constitutional: Constitutional: Denies body ache(s), Reports chills, Denies fatigue and Denies headache(s) Eyes: Eyes: Denies change in vision ENT: Denies headache(s), Denies nasal congestion, Denies nasal discharge and Denies sinus pressure Cardiovascular: Cardiovascular: Denies chest pain, Denies rapid heart rate, Denies leg edema, Denies lightheadedness and Denies dyspnea Respiratory: Respiratory: Denies chest congestion, Denies cough, Denies dyspnea and Denies wheezing Gastrointestinal: Gastrointestinal: Denies abdominal pain, Denies nausea and Denies vomiting Genitourinary: Genitourinary: Denies dysuria and Denies urinary urgency Musculoskeletal: Musculoskeletal: Reports as per HPI Integumentary/Breasts: Skin/Breast: Denies rash Neurologic: Denies confusion and Denies headache(s) Psychiatric: Psychiatric: Denies confusion Endocrine: Endocrine: Denies fatigue Hematologic/Lymphatic: Hematologic/Lymphatic: Denies easy bleeding and Denies easy bruising Allergic/Immunologic: Allergic/Immunologic: Denies wheezing [facility] Medical History Chronic pain COPD (chronic obstructive pulmonary disease) Asthma Thyroid activity decreased Carpal tunnel syndrome Neuropathy Sleep apnea HTN (hypertension) Opiate dependence Anxiety GERD (gastroesophageal reflux disease) Diabetes PTSD (post-traumatic stress disorder) Depression Suicide attempt Functional capacity: independent ambulation Social History Alcohol intake: unknown Patient Tobacco Use Status: Tobacco use Unknown Smoked in Last 30 Days: No Use of substances other than those prescribed or required for medical reasons: No Advance Directives: No Advance Directives Information Provided: Yes Do you have a plan to hurt others: No Plan Narrative: No smoking or alcohol. Occasional marijuana Meds Allergies Allergy/AdvReac Type Severity Reaction Status Date / Time grass pollen Allergy Itching Verified 02/22/25 10:31 mold Allergy Itching Verified 02/22/25 10:31 weed pollen Allergy Itching Verified 02/22/25 10:31 Active Medications: Current Medications Acetaminophen (Acetaminophen 325 Mg Tablet) 975 mg PO Q6H [facility] Dextrose (Dextrose 50 % 25 Gm/50 Ml Syringe) 25 gm IVPUSH Q15M PRN; Protocol PRN Reason: per Hypoglycemia Standing Ord. Gabapentin (Gabapentin 600 Mg Tablet) 600 mg PO TID KATHY Glucose (Glucose Gel 15 Gm Gel..Gram.) 15 gm PO Q15M PRN; Protocol PRN Reason: per Hypoglycemia Standing Ord. Insulin Human Lispro (Insulin Lispro 100 Unit/Ml 3 Ml Vial) 0 unit SUBCUT QIDACHS [facility]; Protocol Ketorolac Tromethamine (Ketorolac Tromethamine 10 Mg Tablet) 10 mg PO Q6H KATHY Stop: 02/23/25 03:16 Lidocaine (Lidocaine 4 % Patch Adh..Patch) 1 patch TRANSDERMA DAILY [facility]; Protocol Methocarbamol (Methocarbamol 500 Mg Tablet) 1,000 mg PO QID KATHY Oxycodone HCl (Oxycodone Hcl Immed Release 5 Mg Tablet) 10 mg PO Q6H PRN PRN Reason: Pain, Severe (Pain Scale 7-10) Quetiapine Fumarate (Quetiapine Fumarate 50 Mg Tablet) 50 mg PO BEDTIME KATHY Tramadol HCl (Tramadol Hcl 50 Mg Tablet) 50 mg PO Q6H PRN PRN Reason: Pain, Moderate(Pain Scale 4-6) Physical Exam 2 Vital Signs and Narrative: Vital Signs: Last Vital Signs Temp 98.5 F 02/22/25 10:35 Pulse 91 02/22/25 17:26 Resp 16 02/22/25 17:26 BP 147/106 H 02/22/25 17:26 Pulse Ox 97 02/22/25 17:26 O2 Del Method Room Air 02/22/25 17:26 BMI result Body Mass Index 31.9 General: AOx3, no acute distress Resp: CTA bilaterally CVS: S1, S2, RRR GI: +BS, NT, no distention Skin: Warm, dry. no obvious warmth or erythema anywhere Neuro: Cranial nerves II-XII grossly intact bilaterally. Motor grossly intact bilaterally Extremities: No pitting edema or unilateral edema. pain with light touch to the knee. Psych: Appropriate affect Const: General: No confusion Orientation/consciousness: No confusion Neuro: General: No confusion Results Labs 02/22/25 18:43 02/22/25 18:43 Labs: Laboratory Results - last 24 hr 02/22/25 18:43 MCV 86.8 MCH 31.0 MCHC 35.7 RDW 12.4 Plt Count 170 MPV 9.2 L Immature Gran % (Auto) 0.4 Neut % (Auto) 91.7 H Lymph % (Auto) 6.8 L [place] % (Auto) 1.0 L Eos % (Auto) 0.0 Baso % (Auto) 0.1 Lymph # (Auto) 0.5 L [place] # (Auto) 0.1 Eos # (Auto) 0.0 Baso # (Auto) 0.0 Abs Immat Gran (auto) 0.03 Absolute Neuts (auto) 7.2 Absolute Nucleated RBC 0.000 Nucleated RBC % (auto) 0.0 Smear Tech's Comments VERIFIED ESR 8 Anion Gap 15 Estim Creat Clear Calc 139.3 Estimated GFR > 60 Random Glucose 208 H Calcium 8.7 Total Bilirubin 0.4 AST 19 ALT 23 Alkaline Phosphatase 68 C-Reactive Protein 1.11 H Total Protein 6.8 Albumin 4.2 Assessment and Plan (1) Intractable back pain: Status: Acute (2) Acute pain of left lower extremity: Status: Acute (3) Class 1 obesity: Status: Acute Plan Patient is a 49-year-old male with a past medical history significant for class 1 obesity, chronic back pain, anxiety, mild intermittent asthma, HTN (no longer needing medication), type 2 diabetes (no longer on medication), PTSD and degenerative disc disease, who presented to the ED again due to worsening left lower extremity pain. In the emergency department he did not have any improvement with dexamethasone, morphine, Valium, Tylenol, ketorolac, Dilaudid, oxycodone or recent dose of gabapentin. ESR was normal, CRP elevated at 1.11, glucose elevated and bicarb of 19. Patient reports that he has not had much to eat or drink today as he has been in the emergency room. He is no longer taking medications for hypertension or type 2 diabetes, he reports that these have been managed with diet since losing weight. Intractable back pain with acute left lower extremity pain, likely radiculopathy - no leukocytosis, vital signs stable, no infection identified - CRP elevated at 1.11, ESR normal - venous duplex ultrasound left lower extremity negative - lumbar spine CT without acute abnormalities in the lumbar spine. Degenerative changes: Multilevel degenerative disc disease and facet osteoarthritis. Mild central canal stenosis at L4-L5 secondary to a broad based disc bulge and facet osteoarthritis. Moderate stenosis of the bilateral neural foramina at L5-S1 secondary to broad-based disc bulge and facet osteoarthritis. Remaining levels demonstrate no significant narrowing of the central canal or neural foramina. - check uric acid - admit for observation for pain management - oxycodone and tramadol as needed - scheduled gabapentin, Tylenol, Robaxin and Toradol - ice packs - lidocaine patch - MRI lumbar spine in a.m. - PT eval Class 1 obesity - BMI 31.9 - weight loss encouraged Anxiety - continue home meds Mild intermittent asthma, no acute exacerbation - no home meds HTN - no home meds Type 2 diabetes - check POC before meals and bed - sliding scale insulin PRN - diabetic diet PTSD - continue home meds, Seroquel Med rec pending Full code VTE prophylaxis: Lovenox Patient is a 49-year-old male with intractable back pain and left lower extremity radiculopathy, requiring admission for observation for pain management and PT evaluation. Quality Stroke Does the patient have a stroke diagnosis?: No VTE Prior VTE?: No VTE Risk Level:: Medical - moderate - high VTE Device Contraindication: Treatment Not Indicated VTE Drug Contraindication: N/A - Med Ordered
[2025-02-22 21:31] LABS: Uric Acid 3.9 mg/dL (3.4-7.0)
[2025-02-22] MEDS: Lidocaine 4 % Patch ADH..PATCH 1 PATCH TRANSDERMA (21:35)
[2025-02-22 22:49] VITALS: BP 149/97; PULSE 79; RESP 20; TEMP 36.3; O2SAT 98
[2025-02-22] MEDS: 0.9 % Sodium Chloride Flush 3 ML SYRINGE IVFLUSH (23:36)
[2025-02-23] VITALS (7 sets, daily range): BP systolic 147–168; BP diastolic 80–105; PULSE 81–98; RESP 18–20; TEMP 36–36.4; O2SAT 94–98
[2025-02-23 05:58] LABS: Hematocrit 38.4 % (42.0-52.0); Hemoglobin 13.3 g/dl (14.0-18.0); Mean Corpuscular HGB Conc 34.6 g/dl (31.0-36.0); Mean Corpuscular Hemoglobin 31.0 pg (27.0-33.0); Mean Corpuscular Volume 89.5 fL (80.0-98.0); NRBC Abs Auto 0.000 X10*3/uL (0.0-0.012); NRBC Pct Auto 0.0 /100WBC (0.0-0.2); Platelet Count 184 X10*3/uL (160-400); Red Blood Count 4.29 X10*6/uL (4.60-5.80); White Blood Count 10.8 X10*3/uL (4.8-10.8)
[2025-02-23 06:12] LABS: Anion Gap 15 (12-20); Blood Urea Nitrogen 21 mg/dL (9-16); Calcium 8.6 mg/dL (8.4-10.2); Carbon Dioxide 20 mmol/L (22-29); Chloride 107 mmol/L (96-108); Creatinine Clr Calc Pharmacy 126.7; Estimated Glomerular Filt Rate > 60; Potassium 4.5 mmol/L (3.3-5.1); Sodium 137 mmol/L (135-145)
[2025-02-23] MEDS: oxyCODONE HCl Immed Release 5 MG TABLET 10 MG PO ×2 (07:26→14:47)
[2025-02-23 07:44] LABS: Glucose, Whole Blood 277 mg/dL (60-115)
[2025-02-23] MEDS: 0.9 % Sodium Chloride Flush 3 ML SYRINGE IVFLUSH ×3 (07:49→23:39)
--- NOTE | 2025-02-23 08:04 | PHA.MEDREC ---
Addendum entered by Flores Olivera RPh 02/23/25 08:15: reviewed by [facility]. Original Note: Pharmacy Consult ? Medication Reconciliation Pharmacy has completed the medication reconciliation. Spoke with pt and he confirmed his medications. Pt confirmed his Focalin 10mg tab; 1/2 tab daily and his Focalin 10mg XR tab; 3 tabs daily.
[2025-02-23 11:31] LABS: Glucose, Whole Blood 284 mg/dL (60-115)
[2025-02-23] MEDS: Dextroamphetamine/Amphetamine XR 10 MG CAP.ER.24H 30 MG PO (13:24)
[2025-02-23] MEDS: Amphetamine Mixed Salts 10 MG TABLET 5 MG PO ×2 (13:24→20:55)
--- NOTE | 2025-02-23 14:17 | MHC.CM.PN ---
pt lives alone has own transport home pt is indepedent dc plan home n/s
--- NOTE | 2025-02-23 15:26 | HO.PM.IMPN ---
Subjective Subjective Date of Service: 02/23/25 Interval History: c/o back pain radiating down L leg Review of Systems Review of Systems: Yes all other systems are reviewed and are negative Physical Exam Vital Signs: Vital Signs: Last Vital Signs Temp 96.9 F 02/23/25 11:12 Pulse 81 02/23/25 11:12 Resp 18 02/23/25 11:12 BP 157/86 H 02/23/25 07:33 Pulse Ox 98 02/23/25 11:12 O2 Del Method Room Air 02/23/25 11:12 BMI result Body Mass Index 31.9 Gen: in no acute distress HEENT: sclera anicteric, moist mucus membranes Neck: supple Lungs: clear to auscultation bilaterally Heart: regular rate and rhythm, no murmurs Abd: soft, non-tender, non-distended Ext: no edema Skin: warm/well-perfused Neuro: alert and oriented x3, no focal findings Psych: appropriate affect Objective Data Active Medications Acetaminophen (Acetaminophen 325 Mg Tablet) 975 mg PO Q6H [facility] Last Admin: 02/23/25 13:25 Dose: 975 mg Documented By: ISABELLE Amphetamine/Dextroamphetamine (Amphetamine Mixed Salts 10 Mg Tablet) 5 mg PO BID [facility] Last Admin: 02/23/25 13:24 Dose: 5 mg Documented By: ISABELLE Amphetamine/Dextroamphetamine (Dextroamphetamine/Amphetamine Xr 10 Mg Cap.Er.24h) 30 mg PO DAILY [facility] Last Admin: 02/23/25 13:24 Dose: 30 mg Documented By: ISABELLE Calcium Carbonate (Calcium Carbonate 750 Mg Tab.Chew) 750 mg PO Q4H PRN PRN Reason: Heartburn Clonazepam (Clonazepam 0.5 Mg Tablet) 0.5 mg PO DAILY PRN PRN Reason: Anxiety Dextrose (Dextrose 50 % 25 Gm/50 Ml Syringe) 25 gm IVPUSH Q15M PRN; Protocol PRN Reason: per Hypoglycemia Standing Ord. Enoxaparin Sodium (Enoxaparin Sodium 40 Mg/0.4 Ml Syringe) 40 mg SUBCUT Q24H [facility] Last Admin: 02/22/25 21:35 Dose: 40 mg Documented By: TRU Gabapentin (Gabapentin 600 Mg Tablet) 600 mg PO TID [facility] Last Admin: 02/23/25 14:49 Dose: 600 mg Documented By: BRAVO Glucose (Glucose Gel 15 Gm Gel..Gram.) 15 gm PO Q15M PRN; Protocol PRN Reason: per Hypoglycemia Standing Ord. Hydromorphone HCl (Hydromorphone Hcl 1 Mg/Ml Syringe) 1 mg IVPUSH Q4H PRN; Protocol PRN Reason: Pain, Severe (Pain Scale 7-10) Last Admin: 02/23/25 12:05 Dose: 1 mg Documented By: BRAVO Insulin Human Lispro (Insulin Lispro 100 Unit/Ml 3 Ml Vial) 0 unit SUBCUT QIDACHS [facility]; Protocol Last Admin: 02/23/25 12:06 Dose: 6 unit Documented By: BRAVO Ketorolac Tromethamine (Ketorolac Tromethamine 15 Mg/Ml Vial) 15 mg IVPUSH Q6H [facility] Stop: 02/24/25 06:01 Last Admin: 02/23/25 13:25 Dose: 15 mg Documented By: ISABELLE Lidocaine (Lidocaine 4 % Patch Adh..Patch) 1 patch TRANSDERMA DAILY [facility]; Protocol Last Admin: 02/23/25 12:09 Dose: Not Given Documented By: BRAVO Non-Admin Reason: Patient Refused Magnesium Hydroxide (Milk Of Magnesia 30 Ml Oral.Susp) 30 ml PO DAILY PRN PRN Reason: Constipation Melatonin (Melatonin 3 Mg Tablet) 6 mg PO BEDTIME PRN PRN Reason: Insomnia Methocarbamol (Methocarbamol 500 Mg Tablet) 1,000 mg PO QID [facility] Last Admin: 02/23/25 13:26 Dose: 1,000 mg Documented By: ISABELLE Ondansetron HCl (Ondansetron Hcl 4 Mg/2 Ml Vial) 4 mg IVPUSH Q8H PRN PRN Reason: Nausea and Vomiting Oxycodone HCl (Oxycodone Hcl Immed Release 5 Mg Tablet) 10 mg PO Q6H PRN PRN Reason: Pain, Moderate(Pain Scale 4-6) Last Admin: 02/23/25 14:47 Dose: 10 mg Documented By: BRAVO Prednisone (Prednisone 20 Mg Tablet) 40 mg PO DAILY [facility] Last Admin: 02/23/25 09:58 Dose: Not Given Documented By: BRAVO Non-Admin Reason: Duplicate Order Quetiapine Fumarate (Quetiapine Fumarate 50 Mg Tablet) 50 mg PO BEDTIME [facility] Last Admin: 02/22/25 23:30 Dose: 50 mg Documented By: CHENG Comments: patient never got this in the ED even though it was scanned. ED RN let me know patient wanted it later so it was never administered Sodium Chloride (0.9 % Sodium Chloride Flush 3 Ml Syringe) 3 ml IVFLUSH QSHIFT [facility] Last Admin: 02/23/25 07:49 Dose: 3 ml Documented By: BRAVO Tramadol HCl (Tramadol Hcl 50 Mg Tablet) 50 mg PO Q6H PRN PRN Reason: Pain, Moderate(Pain Scale 4-6) Last Admin: 02/22/25 21:30 Dose: 50 mg Documented By: TRU Labs 02/23/25 05:17 02/23/25 05:17 Labs: Laboratory Results - last 24 hr 02/22/25 02/23/25 02/23/25 18:43 05:17 07:27 MCV 86.8 89.5 MCH 31.0 31.0 MCHC 35.7 34.6 RDW 12.4 12.6 Plt Count 170 184 MPV 9.2 L 9.9 Immature Gran % (Auto) 0.4 Neut % (Auto) 91.7 H Lymph % (Auto) 6.8 L [place] % (Auto) 1.0 L Eos % (Auto) 0.0 Baso % (Auto) 0.1 Lymph # (Auto) 0.5 L [place] # (Auto) 0.1 Eos # (Auto) 0.0 Baso # (Auto) 0.0 Abs Immat Gran (auto) 0.03 Absolute Neuts (auto) 7.2 Absolute Nucleated RBC 0.000 0.000 Nucleated RBC % (auto) 0.0 0.0 Smear Tech's Comments VERIFIED ESR 8 Anion Gap 15 15 Estim Creat Clear Calc 139.3 126.7 Estimated GFR > 60 > 60 POC Glucose 277 H Random Glucose 208 H 307 H Uric Acid 3.9 Calcium 8.7 8.6 Total Bilirubin 0.4 AST 19 ALT 23 Alkaline Phosphatase 68 C-Reactive Protein 1.11 H Total Protein 6.8 Albumin 4.2 02/23/25 11:11 MCV MCH MCHC RDW Plt Count MPV Immature Gran % (Auto) Neut % (Auto) Lymph % (Auto) [place] % (Auto) Eos % (Auto) Baso % (Auto) Lymph # (Auto) [place] # (Auto) Eos # (Auto) Baso # (Auto) Abs Immat Gran (auto) Absolute Neuts (auto) Absolute Nucleated RBC Nucleated RBC % (auto) Smear Tech's Comments ESR Anion Gap Estim Creat Clear Calc Estimated GFR POC Glucose 284 H Random Glucose Uric Acid Calcium Total Bilirubin AST ALT Alkaline Phosphatase C-Reactive Protein Total Protein Albumin Impressions Lumbar Spine MRI 02/23/25 12:40 IMPRESSION: L3-L4: There is mild right and moderate left foraminal narrowing. L4-L5: There is left facet joint effusion. L5-S1: There is small central disc extrusion and mild to moderate bilateral foraminal narrowing, greater on the right. There is nonspecific edema in the left paraspinal muscles along the lower lumbar spine. This could be related to a grade 1 strain. Electronically signed by: Russ Acosta MD 02/23/2025 01:27 PM EDT RP Assessment and Plan (1) Intractable back pain: Status: Acute Plan d2, 49yo M with chronic back pain, DDD, PTSD, HTN + DM2 no longer on medications for these presenting with back pain radiating to LLE intractable back pain with LLE pain - MRI: moderate L forminal narrowing at L3-L4 and R at L5-S1, left paraspinal edema - continue oxycodone, gabapentin, methocarbamol, ketorolac, APAP; also on IV Dilaudid - PT: STR - outpt f/u with spine clinic mood disorder - clonazepam, quetiapine VTE prophylaxis - enoxaparin dispo - STR In my clinical judgment, the patient requires continued inpatient hospitalization for the following reasons: placement Total time managing care of this patient today: 35 minutes. Quality Stroke Does the patient have a stroke diagnosis?: No VTE Prior VTE?: No VTE Risk Level:: Medical - moderate - high VTE Device Contraindication: Treatment Not Indicated VTE Drug Contraindication: N/A - Med Ordered
[2025-02-23 16:55] LABS: Glucose, Whole Blood 213 mg/dL (60-115)
[2025-02-23 20:44] LABS: Glucose, Whole Blood 184 mg/dL (60-115)
[2025-02-24 04:00] VITALS: BP 163/89; PULSE 82; RESP 20; TEMP 36.7; O2SAT 98
[2025-02-24] MEDS: oxyCODONE HCl Immed Release 5 MG TABLET 10 MG PO ×2 (06:10→12:10)
[2025-02-24 06:55] LABS: Hematocrit 40.0 % (42.0-52.0); Hemoglobin 13.4 g/dl (14.0-18.0); Mean Corpuscular HGB Conc 33.5 g/dl (31.0-36.0); Mean Corpuscular Hemoglobin 30.7 pg (27.0-33.0); Mean Corpuscular Volume 91.5 fL (80.0-98.0); NRBC Abs Auto 0.000 X10*3/uL (0.0-0.012); NRBC Pct Auto 0.0 /100WBC (0.0-0.2); Platelet Count 182 X10*3/uL (160-400); Red Blood Count 4.37 X10*6/uL (4.60-5.80); White Blood Count 13.7 X10*3/uL (4.8-10.8)
[2025-02-24 07:54] LABS: Anion Gap 11 (12-20); Blood Urea Nitrogen 28 mg/dL (9-16); Calcium 8.3 mg/dL (8.4-10.2); Carbon Dioxide 22 mmol/L (22-29); Chloride 108 mmol/L (96-108); Creatinine Clr Calc Pharmacy 113.7; Estimated Glomerular Filt Rate > 60; Potassium 4.1 mmol/L (3.3-5.1); Sodium 137 mmol/L (135-145)
[2025-02-24 07:54] LABS: Glucose, Whole Blood 144 mg/dL (60-115)
[2025-02-24 08:00] VITALS: BP 128/86; PULSE 76; RESP 18; TEMP 36.2; O2SAT 100
[2025-02-24] MEDS: 0.9 % Sodium Chloride Flush 3 ML SYRINGE IVFLUSH (08:19)
[2025-02-24] MEDS: Amphetamine Mixed Salts 10 MG TABLET 5 MG PO (08:19)
[2025-02-24] MEDS: Lidocaine 4 % Patch ADH..PATCH 1 PATCH TRANSDERMA (08:21)
[2025-02-24] MEDS: Dextroamphetamine/Amphetamine XR 10 MG CAP.ER.24H 30 MG PO (08:28)
[2025-02-24 11:26] LABS: Glucose, Whole Blood 210 mg/dL (60-115)
[2025-02-24 12:00] VITALS: PULSE 85; RESP 20; TEMP 36.3; O2SAT 97
--- NOTE | 2025-02-24 12:10 | MHC.CM.PN ---
pt dcd to [facility] at 2
--- NOTE | 2025-02-24 12:29 | MHC.CM.PN ---
auth number is [id number]
--- NOTE | 2025-02-24 12:30 | P.DS_ITS ---
DS: Providers Provider Date of Service: 02/24/25 Date of admission: 02/22/25 19:59 Date of discharge: 02/24/25 Primary care physician: Unknown Physician DS: Diagnosis Discharge Diagnosis (1) Intractable back pain: Status: Acute (2) Radiculopathy: Status: Acute DS: Summary Hospital Course Hospital Course: From the history and physical by the admitting hospitalist, CAROLYNE Pitt, 02/22/25: Patient is a 49-year-old male with a past medical history significant for class 1 obesity, chronic back pain, anxiety, mild intermittent asthma, HTN (no longer needing medication), type 2 diabetes (no longer on medication), PTSD and degenerative disc disease, who presented to the ED again due to worsening left lower extremity pain. The patient reports numbness and tingling to the left lower extremity and extreme sensitivity in the left knee. He denies any injury or trauma. He was taking gabapentin 3 times daily however reports that he ran out of this prescription and has not taken it it a few days. He reports fluctuating chills/sweats but no nausea or vomiting. No urinary symptoms including frequency, urgency or dysuria. He has had issues with nocturnal incontinence for many years. No bowel incontinence. He notes bone spurs at T11-T12 and significant low back issues including neuropathy. In the emergency department he did not have any improvement with dexamethasone, morphine, Valium, Tylenol, ketorolac, Dilaudid, oxycodone or recent dose of gabapentin. ESR was normal, CRP elevated at 1.11, glucose elevated and bicarb of 19. Patient reports that he has not had much to eat or drink today as he has been in the emergency room. He is no longer taking medications for hypertension or type 2 diabetes, he reports that these have been managed with diet since losing weight. 49yo M with chronic back pain, DDD, PTSD, HTN + DM2 no longer on medications for these presenting with back pain radiating to LLE and admitted to the medical- surgical unit for pain control. No saddle anesthesia or bowel/bladder dysfunction. Found on MRI to have moderate L forminal narrowing at L3-L4 and R at L5-S1, left paraspinal edema. Treated with oxycodone, gabapentin, methocarbamol, ketorolac, lidocaine, acetaminophen, and IV hydromorphone. PT consulted and STR recommended. Also recommended outpatient follow up with [facility] [place] [place] [facility]. He was discharged to [facility] for STR on oxycodone, gabap entin, methocarbamol, lidocaine, and acetaminophen. I anticipate that the patient will stay at the detention facility for less than 30 days. Time Attestation Discharge Coordination Time (in mins): 35 Quality: Safe Use of Opioids Does Pt have an Active Cancer Diagnosis on the Problem List?: No Quality: Stroke Does the patient have a stroke diagnosis?: No Physical Exam Vital Signs: Vital Signs: Last Vital Signs Temp 97.3 F 02/24/25 12:00 Pulse 85 02/24/25 12:00 Resp 20 02/24/25 12:00 BP 128/86 02/24/25 08:00 Pulse Ox 97 02/24/25 12:00 O2 Del Method Room Air 02/24/25 12:00 BMI result Body Mass Index 31.9 Gen: in no acute distress HEENT: sclera anicteric, moist mucus membranes Neck: supple Lungs: clear to auscultation bilaterally Heart: regular rate and rhythm, no murmurs Abd: soft, non-tender, non-distended Ext: no edema Skin: warm/well-perfused, hyperesthesia L L3-L4 area Neuro: alert and oriented x3, no focal findings Psych: appropriate affect DS: Data Data Completed and Pending Completed studies during hospitalization [Text1]: Laboratory Results WBC 13.7 X10*3/uL (4.8-10.8) H 02/24/25 05:29 RBC 4.37 X10*6/uL (4.60-5.80) L 02/24/25 05:29 Hgb 13.4 g/dl (14.0-18.0) L 02/24/25 05:29 Hct 40.0 % (42.0-52.0) L 02/24/25 05:29 MCV 91.5 fL (80.0-98.0) 02/24/25 05:29 MCH 30.7 pg (27.0-33.0) 02/24/25 05:29 MCHC 33.5 g/dl (31.0-36.0) 02/24/25 05:29 RDW 12.7 % (11.0-16.0) 02/24/25 05:29 Plt Count 182 X10*3/uL (160-400) 02/24/25 05:29 MPV 10.2 fL (9.4-12.4) 02/24/25 05:29 Immature Gran % (Auto) 0.4 % (0.0-0.4) 02/22/25 18:43 Neut % (Auto) 91.7 % (45-73) H 02/22/25 18:43 Lymph % (Auto) 6.8 % (20-40) L 02/22/25 18:43 Andrews % (Auto) 1.0 % (2-11) L 02/22/25 18:43 Eos % (Auto) 0.0 % (0-4) 02/22/25 18:43 Baso % (Auto) 0.1 % (0-2) 02/22/25 18:43 Lymph # (Auto) 0.5 X10*3/uL (1.2-4.9) L 02/22/25 18:43 Andrews # (Auto) 0.1 X10*3/uL (0.1-1.2) 02/22/25 18:43 Eos # (Auto) 0.0 X10*3/uL (0.0-0.4) 02/22/25 18:43 Baso # (Auto) 0.0 X10*3/uL (0.0-0.2) 02/22/25 18:43 Abs Immat Gran (auto) 0.03 X10*3/uL (0.00-0.03) 02/22/25 18:43 Absolute Neuts (auto) 7.2 x10*3/uL (2.0-8.3) 02/22/25 18:43 Absolute Nucleated RBC 0.000 X10*3/uL (0.0-0.012) 02/24/25 05:29 Nucleated RBC % (auto) 0.0 /100WBC (0.0-0.2) 02/24/25 05:29 Smear Tech's Comments VERIFIED 02/22/25 18:43 ESR 8 MM/HR (0-15) 02/22/25 18:43 Sodium 137 mmol/L (135-145) 02/24/25 05:29 Potassium 4.1 mmol/L (3.3-5.1) 02/24/25 05:29 Chloride 108 mmol/L (96-108) 02/24/25 05:29 Carbon Dioxide 22 mmol/L (22-29) 02/24/25 05:29 Anion Gap 11 (12-20) L 02/24/25 05:29 BUN 28 mg/dL (9-16) H 02/24/25 05:29 Creatinine 0.98 mg/dL (0.5-1.4) 02/24/25 05:29 Estim Creat Clear Calc 113.7 02/24/25 05:29 Estimated GFR > 60 02/24/25 05:29 POC Glucose 210 mg/dL (60-115) H 02/24/25 11:13 Random Glucose 209 mg/dL (60-115) H 02/24/25 05:29 Uric Acid 3.9 mg/dL (3.4-7.0) 02/22/25 18:43 Calcium 8.3 mg/dL (8.4-10.2) L 02/24/25 05:29 Total Bilirubin 0.4 mg/dL (0.0-1.0) 02/22/25 18:43 AST 19 U/L (5-37) 02/22/25 18:43 ALT 23 U/L (0-40) 02/22/25 18:43 Alkaline Phosphatase 68 U/L (39-117) 02/22/25 18:43 C-Reactive Protein 1.11 mg/dL (< or = 0.50) H 02/22/25 18:43 Total Protein 6.8 g/dL (6.5-8.0) 02/22/25 18:43 Albumin 4.2 g/dL (3.5-5.0) 02/22/25 18:43 Impressions Lumbar Spine MRI 02/23/25 12:40 IMPRESSION: L3-L4: There is mild right and moderate left foraminal narrowing. L4-L5: There is left facet joint effusion. L5-S1: There is small central disc extrusion and mild to moderate bilateral foraminal narrowing, greater on the right. There is nonspecific edema in the left paraspinal muscles along the lower lumbar spine. This could be related to a grade 1 strain. Electronically signed by: Russ Acosta MD 02/23/2025 01:27 PM EDT Discharge Plan Discharge Patient Disposition: Xfer SNF Discharge Diagnosis: back pain/radiculopathy [facility]errals: [facility] [Other] - 1 Week [facility] [place] [place] [facility] [Provider Group, Pain Management] - 2 Weeks Physician,Unknown J [Primary Care Provider, Medical] - 1 Week Discharge Medications: New methocarbamol 500 mg Tablet 1,000 mg PO QID Qty: 1 0RF acetaminophen 325 mg Tablet 650 mg PO Q6H Qty: 1 0RF gabapentin 600 mg Tablet 600 mg PO TID Qty: 1 0RF lidocaine [Lidocaine Pain Relief] 4 % Adhesive Patch,Medicated 1 patch transdermal DAILY Qty: 1 0RF Protocol: Apply to: Apply to: left low back oxycodone 5 mg Tablet 10 mg PO Q6H PRN (Reason: Pain, Moderate(Pain Scale 4-6)) Qty: 24 0RF Rx Instructions: Partial Fill upon patient request. prednisone 10 mg tablet See Rx Instructions .ROUTE .COMPLEX Qty: 20 0RF Rx Instructions: 40 mg daily x 2 days, then 30 mg daily x 2 days, then 20 mg daily x 2 days, then 10 mg daily x 2 days, then stop Continued clonazepam [Klonopin] 0.5 mg tablet 0.5 mg PO DAILY PRN (Reason: anxiety) dexmethylphenidate [Focalin] 10 mg tablet 5 mg PO BID dexmethylphenidate [Focalin XR] 10 mg capsule,ER biphasic 50-50 30 mg PO DAILY quetiapine 25 mg tablet 50 mg PO BEDTIME Discontinued gabapentin 300 mg capsule 300 mg PO TID Discharge Orders: Discharge Order (Routine); Ordered 02/24/25 Ordered By: Kian Nunez Diet: Advance to usual diet Activity on Discharge: As tolerated Stand Alone Forms: Patient Portal Discharge page Print Language: Sami Care Plan Goals: pain relief Health Concerns: back pain/radiculopathy Plan of Treatment: methocarbamol 1000 mg 4x a day acetaminophen 650 mg 4x a day gabapentin 600 mg 3x a day lidocaine patch daily prednisone 10 mg tabs, taper as follows: 40 mg (4 tabs) daily x 2 days, then 30 mg (3 tabs) daily x 2 days, then 20 mg (2 tabs) daily x 2 days, then 10 mg (1 tab) daily x 2 days oxycodone 10 mg every 6 hours as needed for severe pain referral to [facility] [place] [place] Pain Management, 2 weeks Please follow up with your primary care doctor within 1 week of discharge from rehabilitation. Return to the hospital if you experience recurrent or worsening symptoms. Assessment: See Discharge Summary.
[2025-02-24 14:09] VITALS: BP 164/102; PULSE 80; RESP 20
== END 2025-02-24 15:00 | disposition skilled nursing facility (03) ==
LOC: HO.ED 19:32 → HO.EDOVER 20:08 → HO.S3 21:37
PROVIDERS: Physician Assistant; Physician Assistant Medical; Admitting Provider Internal Medicine; Emergency Provider Emergency Medicine; Visit Provider Family Medicine
DX: M54.9 Dorsalgia, unspecified (principal); M54.10 Radiculopathy, site unspecified; M79.605 Pain in left leg; M25.48 Effusion, other site; M48.07 Spinal stenosis, lumbosacral region; E66.811 Obesity, class 1; Z68.31 Body mass index [BMI] 31.0-31.9, adult; F41.1 Generalized anxiety disorder; J45.20 Mild intermittent asthma, uncomplicated; I10 Essential (primary) hypertension; E11.9 Type 2 diabetes mellitus without complications; K21.9 Gastro-esophageal reflux disease without esophagitis; F43.10 Post-traumatic stress disorder, unspecified
CPT/HCPCS: 36415; 72131; 72148; 80048; 80053; 82947; 84550; 85025; 85027; 85652; 86140; 93971; 96365; 96372; 96375; 96376; 97162; 99221; 99285; J0131; J1100; J1171; J1650; J1885; J2270; J3360

== ENCOUNTER → 2025-02-22 11:36 | Outpatient (BNV) | payer OTHER, SELFPAY | PROVIDERS: Emergency Provider Emergency Medicine; Visit Provider Radiology Diagnostic Radiology | DX: M54.16 Radiculopathy, lumbar region (principal); M54.50 Low back pain, unspecified; M79.662 Pain in left lower leg | CPT/HCPCS: 72131; 93971 ==

== ENCOUNTER 2025-02-22 19:59 | Outpatient (BNV) | payer OTHER, SELFPAY | END 2025-02-23 12:40 | PROVIDERS: Admitting Provider Internal Medicine; Emergency Provider Emergency Medicine; Visit Provider Radiology Diagnostic Radiology | DX: M48.061 Spinal stenosis, lumbar region without neurogenic claudication (principal) | CPT/HCPCS: 72148 ==

== ENCOUNTER → 2025-02-22 19:59 | Outpatient (BNV) | payer OTHER, SELFPAY | PROVIDERS: Admitting Provider Internal Medicine; Emergency Provider Emergency Medicine; Visit Provider Family Medicine | DX: M54.9 Dorsalgia, unspecified (principal); M54.10 Radiculopathy, site unspecified | CPT/HCPCS: 99232; 99239 ==

== ENCOUNTER 2025-04-29 15:02 | Outpatient (AMB) | payer OTHER, SELFPAY ==
--- NOTE | 2025-04-29 15:10 | A.OFFPC_ITS ---
Vital Signs 04/29/25 15:11 Height 5 ft 10.87 in Weight 296 lb 2 oz BMI 41.4 BP 150/80 H Blood Pressure Location Lt brachial Position Sitting Pulse 104 H Pulse Source Pulse Oximeter Temp 96.6 F L Temp Source Temporal Artery Scan Pulse Oximetry (%) 98 Oxygen Delivery Method Room Air Intake Visit Reasons: establish care Intake Note: Patient is a new patient here to establish care for Neuropathy, HTN, Hx DM, Asthma, COPD, hx TERELL, ADHD, Anxiety . Transferring care from Dr Hicks. Medical records have been requested and have not received. Long Filler Cigar Roller Machine Required: No Ski Molder: Not Required per policy Accompanied by: Self / Same As Patient Allergies grass pollen Allergy (Verified 04/29/25 15:11) Itching mold Allergy (Verified 04/29/25 15:11) Itching weed pollen Allergy (Verified 04/29/25 15:11) Itching Tobacco use date assessed: 04/29/25 Dental Screening Dental Screen Date: 04/29/25 Did you have a dental visit in the last 12 months?: No Did you have a dental problem in the last 6 months where you did not have access to dental care?: No Was dental information given to patient?: No HPI HPI Comments History of Present Illness Details Patient is a 49-year-old male with a past medical history significant for class III obesity, chronic back pain with neuropathy, anxiety, mild intermittent asthma, HTN, type 2 diabetes (not on medication), PTSD and degenerative disc disease who presents today to establish care. Patient reports that he has been on disability for 5 years due to his chronic back pain with neuropathy. He is currently experiencing symptoms back pain with numbness and tingling in his left leg. He is currently taking gabapentin 600 mg 3 times a day and lidocaine patches p.r.n. for pain management. Of note, patient was admitted at [facility] [place] in February 2025 for uncontrolled back pain radiating to left lower extremity. MRI at that time found to have moderate left foraminal narrowing at L3-L4 and bilateral foraminal narrowing at L5-S1, with left paraspinal edema. Patient does not wish to be referred to pain management or orthopedic at this time. He has a 20 pack year smoking history (quit in 2021). Denies alcohol or illicit drug use. In regards to his ADHD, he is currently on Focalin 5 mg twice a day and Focalin extended release 30 mg daily that is being managed by behavioral health network. In regards to hypertension, patient reports that he was previously on lisinopril 30 mg that he discontinued after he has lost significant weight from 360 lb to 205 lb, as he thinks that helped with the blood pressure and felt no need for medications anymore. When asked about his diabetes, he denied history of diabetes and being previously on diabetic medications. [facility] Medical History (Updated 04/29/25 @ 17:52 by Zeny Martin MD) Chronic pain COPD (chronic obstructive pulmonary disease) Asthma Thyroid activity decreased Carpal tunnel syndrome Neuropathy Sleep apnea HTN (hypertension) Opiate dependence Anxiety GERD (gastroesophageal reflux disease) Diabetes PTSD (post-traumatic stress disorder) Depression Suicide attempt Surgical History (Updated 04/29/25 @ 15:23 by MANISH Pacheco) History of right knee surgery Social History (Updated 04/29/25 @ 15:23 by MANISH Pacheco) Housing: House Alcohol intake: never Patient Tobacco Use Status: Former Tobacco user e-Cigarette/Vaping Use: Never Used Second Hand Smoke Exposure: Yes service: No Current occupational status: disabled Cognitive needs: Yes (Cane) Hearing needs: No Vision needs: Yes (Glasses) Questionnaire PHQ-9 Over the last 2 weeks, how often have you been bothered by any of the following problems? 1. Little interest or pleasure in doing things: not at all 2. Feeling down, depressed, or hopeless: not at all 3. Trouble falling or staying asleep, or sleeping too much: not at all 4. Feeling tired or having little energy: not at all 5. Poor appetite or overeating: not at all 6. Feeling bad about yourself - or that you are a failure or have let yourself or your family down: not at all 7. Trouble concentrating on things, such as reading the newspaper or watching television: not at all 8. Moving or speaking so slowly that other people could have noticed. Or the opposite - being so fidgety or restless that you have been moving around a lot more than usual: not at all 9. Thoughts that you would be better off or of hurting yourself in some way: not at all Total score: 0 Depression Screening Interpretation: Negative Depression Screening Done: Yes Source: Developed by Drs. Nathanael Gaytan, Antonieta Ernst, Pavel Kwok and colleagues, with an educational radha from [employer]. Thrive Questionnaire Date Thrive assessed: 02/23/25 I am a: Patient What is your living situation today?: I choose not to answer this question Within the past 12 months, did the food you bought not last and you didn't have the money to get more?: I choose not to answer this question Within the past 12 months, did you worry whether your food would run out before you got money to buy more?: I choose not to answer this question Do you have trouble paying for medicines?: I choose not to answer this question Do you have trouble getting transportation to medical appointments?: I choose not to answer this question Do you have trouble paying your heating and electricity bill?: I choose not to answer this question Do you have trouble taking care of your child, family member or friend?: I choose not to answer this question Do you have trouble with day-to-day activities such as bathing, preparing meals, shopping, managing finances, etc.?: I choose not to answer this question Are you currently unemployed and looking for a job?: I choose not to answer this question Are you interested in more education?: I choose not to answer this question Please select the resources that you would like help with: None Currently or been in a relationship where the following occur: I choose not to answer THRIVE Score: 0 AUDIT C Alcohol Use Questionnaire (AUDIT-C) 1. How often do you have a drink containing alcohol?: Never Total Score: 0 MARIA M-7 AMB Questionnaire MARIA M-7 Date MARIA M - 7 assessed: 04/29/25 Feeling nervous, anxious, or on edge: 0 = Not at all Not being able to stop or control worryin = Not at all Worrying too much about different things: 0 = Not at all Trouble relaxin = Not at all Being so restless that it is hard to sit still: 0 = Not at all Becoming easily annoyed or irritable: 0 = Not at all Feeling afraid as if something awful might happen: 0 = Not at all Total MARIA M-7 score (0-4 normal; 5-9 mild; 10-14 moderate; 15-21 severe): 0 Source: Developed by Antonieta ChowdaryW. Klever, Pavel Kwok and colleagues, with an educational radha from [employer]. Physical exam (Primary Care) Vital Signs: Last Vital Signs Temp 96.6 F L 04/29/25 15:11 Pulse 104 H 04/29/25 15:11 BP 150/80 H 04/29/25 15:11 Pulse Ox 98 04/29/25 15:11 Oxygen Delivery Method Room Air 04/29/25 15:11 General: Well-appearing, alert, oriented ?3, in no acute distress. Cardiovascular: RRR, S1-S2 appreciated, no murmurs, rubs or gallops. Respiratory: Lungs clear to auscultation bilaterally, no wheezes, rales or rhonchi. Abdomen: Soft, nontender, nondistended. Normoactive bowel sounds. BMI result Body Mass Index 41.4 Tobacco/Smoking Status: Tobacco use Status Tobacco use date assessed 04/29/25 04/29/25 15:25 Patient Tobacco Use Status Former Tobacco user 04/29/25 15:25 e-Cigarette/Vaping Use Never Used 04/29/25 15:25 PHQ-9: PHQ-9 Score PHQ-9: Total score 0 04/29/25 15:25 Depression Screening Interpretation: Negative Thrive Assessment: Date of Thrive Assessment Date Thrive assessed 02/23/25 04/29/25 15:25 Currently or been in a relationship where the following occur: I choose not to answer Coding Level of Care Code New Pt Level 4 (75366) Diagnoses Establishing care with new doctor, encounter for Z76.89 Hypertension, unspecified type I10 Hypertension type: unspecified Intractable back pain M54.9 Class 3 obesity E66.01 Elevated glucose R73.09 Attention deficit hyperactivity disorder (ADHD), unspecified ADHD type F90.9 Attention deficit-hyperactivity disorder type: unspecified Assessment & Plan Assessment & Plan (1) Establishing care with new doctor, encounter for: Code(s): Z76.89 - Persons encountering health services in other specified circumstances Plan: Patient with multiple medical conditions presenting today to establish care. (2) HTN (hypertension): Code(s): I10 - Essential (primary) hypertension Category: Medical Qualifiers: Hypertension type: unspecified Qualified Code(s): I10 - Essential (primary) hypertension Plan: patient reports that he was previously on lisinopril 30 mg that he discontinued after he lost significant weight from 360 lb to 205 lb, as he thinks that helped with the blood pressure and felt no need for medications anymore. Blood pressure 150/80 in clinic today. Per chart review, patient has multiple persistent high blood pressure readings in the past. Plan -patient agreeable to start lisinopril 20 mg daily -will monitor his blood pressure at home and keep a blood pressure log. Blood pressure cough prescription sent to pharmacy -patient educated about DASH diet. He verbalized understanding and motivated to try and lose weight and eat healthier in an attempt to decrease medication does -return to clinic in 2 weeks for nurse visit for blood pressure check -follow up in 3 months. Will need to evaluate for possible underlying TERELL? (3) Intractable back pain: Code(s): M54.9 - Dorsalgia, unspecified Category: Medical Plan: Patient currently on gabapentin 600 mg 3 times a day and lidocaine patches as needed. Medication refills provided. Patient declined referral to pain management or orthopedic at this time. (4) Class 3 obesity: Code(s): E66.01 - Morbid (severe) obesity due to excess calories Category: Medical Plan: Patient counseled on healthier diet options. Exercise abilities limited due to chronic back pain with neuropathy. Patient is motivated to attempt to lose weight stating that he has previously lost weight from 360 lb 2-5 lb. We will revisit our options with weight management during next visit in 3 months, patient will attempt with lifestyle changes at this time. (5) Elevated glucose: Code(s): R73.09 - Other abnormal glucose Category: Medical Plan: Patient noted to have previous multiple readings of elevated blood sugar levels per chart review. He denies history of diabetes and denies being on medications in the past. - will obtain CMP, A1c and lipid panel. Patient advised to be fasting for blood work. (6) ADHD: Code(s): F90.9 - Attention-deficit hyperactivity disorder, unspecified type Category: Medical Qualifiers: Attention deficit-hyperactivity disorder type: unspecified Qualified Code(s): F90.9 - Attention-deficit hyperactivity disorder, unspecified type Plan: Patient is currently on Focalin 5 mg twice a day and focal extended release 30 mg daily. He is being managed by behavioral health who manages his medications. Orders: Orders Lipid Panel with Reflex Today E66.9 - Obesity, unspecified Comprehensive Met. Panel Today R73.09 - Other abnormal glucose Hemoglobin A1c Today M54.9 - Dorsalgia, unspecified, R73.09 - Other abnormal glucose Medications: New blood pressure monitor As directed 1 ea 0RF lisinopril 20 mg PO DAILY 30 tabs 2RF hypertension Refilled lidocaine 4% (Lidocaine Pain Relief) 1 patch See Protocol transdermal DAILY 1 ea 0RF gabapentin 600 mg PO TID 1 tab 0RF
[2025-04-29 15:11] VITALS: BP 150/80; PULSE 104; TEMP 35.9; O2SAT 98; BMI 41.4
--- OUTSIDE RECORDS SUMMARY | 2025-04-29 18:22 | XMS_ITS | Clinical Summary ---
Author Organization [employer] Address [address] [place] [address] Care Team Providers Care Field Contractor Name Role Phone Unavailable Primary Care Provider [...] Most Recently Relevant to Health Maintenance Insurance [facility]
--- OUTSIDE RECORDS SUMMARY | 2025-04-29 18:22 | XMS_ITS | Clinical Summary ---
Author Organization [facility] Address [address] [place] [address] Care Team Providers Care Photographer Name Role Phone Shine Kim DO Primary Care Provider [phone] Surgical History Surgery Date Site/Laterality Comments KNEE [...] Hospitalized for 1 week, required surgical drainage, [facility] [place], August 2019 Family History Medical History Relation [...] Health Maintenance Due Date Last Done Comments Colorectal Cancer Screening: Colonoscopy 1974 Diabetes: Annual GFR (Glomer ular Filtration Rate) [...] PCV) 1993 Cholesterol Screening (Lipid Panel) 05/21/2022 HIV Screening 05/21/2022 Hepatitis C Screening 05/21/2022 Social Influencers of Health Screening 05/21/2022 Diabetes: Annual Urine Albumin-Creatinine Ratio (uACR) 06/03/2022 Diabetes: Blood Sugar Contro l Test (HGBA1C) 06/03/2022 Hypertension/CHF/CAD Annual BMP Blood Test 06/03/2022 Depression Screening 06/18/2024 RSV Immunization Adult Patie nts (1 - Risk 50-74 years 1-dose series) 2024 Zoster Vaccines (1 of 2) 2024 COVID-19 Vaccine (1 - 2024-2 6 season) 2025 Influenza Vaccine (#1) 2025 HIB [...] age to complete this topic Care Teams Photographer Relationship Specialty Start Date End Date Shine Kim DO [address] [place] [address] [phone] PCP - General Internal Medicine 12/14/20
--- OUTSIDE RECORDS SUMMARY | 2025-04-29 18:22 | XMS_ITS | Data Portability ---
Author Organization [employer] [facility], [facility] Address [address] [place] [address] Care Team Providers Care Gang Punch Operator Name Role Phone HIM CCA OTHER MONE HEENA Primary Care Provider [phone] Assessment Encounter Date Assessment Date Assessment LastModified by Organization Details LastModified Time 02/11/2025 02/11/2025 As noted, we were called to see this patient regarding concerns of sciatica and left sided back pain down left side. Evaluation in the field was performed by my color worker colleague, as noted above, I provided real-time direction and supervision for this visit. The evaluation revealed The patient is a 49 year old male with a past medical history of chronic pain who presents with lower back pain radiating down the left lower extremity. The pain has been extreme. He almost called 911 to go to the ER yesterday. Mr. Roy reported experiencing severe back pain radiating down his left leg for the past 36 hours, which has gradually worsened. He has not been eating and has been unable to stand up due to the pain. No fevers or chills. This feels like his typical sciatica pain. He says the pain is not being controlled with the gabapentin that he's taking. He takes 300 milligrams PO BID. He would like me to ask his doctor to increase his Gabapentin dose to help control his pain. I discussed with the patient we can give him an IM Toradol shot and some PO Prednisone and I can prescribe him some naproxen and. Prednisone. Patient is thankful for this. Discuss red flags. Do not think the patient has an epidural Abscess or a neurological surgical emergency. If the patient's pain is uncontrolled, he may need to go to the ER. Patient is not diabetic and has no. Kidney issues. Impression: acute left sided back pain with sciatica Plan: 1) toradol 30 mg im prednisone 60 mg po now and 50 mg po daily for 5 days Primary care, consider pt would like his Gabapentin dose increased currently at 300 mg po bid Disposition: stay at home We discussed the diagnostic uncertainty of home visits and the risk associated with this. In this case, the patient and I felt this to be an acceptable and reasonable amount of risk given the benefit of avoiding an ED visit. We discussed the need to seek care urgently/emerge ntly in the setting of any new or worsening serious symptoms, particularly Red flags including chest pain, SOB, weakness, dizziness, low blood pressure [email or web address] Not available 02/11/2025 12:01:12 02/15/2025 02/15/2025 I have reviewed and agree with the Assessment and Plan as documented by the Political Theory Professor. I provided real-time medical direction via phone for this encounter, and was available for additional phone based assistance as needed. I would add/emphasize: Patient with history of previous sciatica is seen for acute on chronic low back pain radiating to left leg. No bowel or bladder symptoms. No interval trauma. Has run out of his gabapentin and waiting on refill from PCP. No fevers or chills. Has some paresthesias down the leg but is ambulatory without assistance. AVSS and well-appearing. Patient reports relief from 20 mg of prednisone daily x 3 days in the past while awaiting refill of gabapentin from his PCP. No red flag symptoms for spinal cord catastrophe. Will Rx short course of prednisone and have him follow-up with PCP [email or web address] Not available 02/16/2025 00:09:33 Plan of Treatment Reminders Order Date Submit Date Provider Last Modified By Organization Details Last Modified Time Details Appointments None recorded. Lab None recorded. Referral None recorded. Procedures None recorded. Surgeries None recorded. Imaging None recorded. Medication Orders prednison e 20 mg tablet 2024 025 [facility], [address] [place], [address], 00:09:33 ketorolac 30 mg/mL injection solution 2024 025 [facility], [address] [place], [address], 08/27/202 5 11:30:41 naproxen 500 mg tablet 2024 025 [facility], [address] [place], [address], 11:31:44 prednison e 50 mg tablet 2024 025 [facility], [address] [facility] [place], [address], 05:01:22 prednison e 20 mg tablet [address] [facility], [address] [place], [address], 11:30:41 Patient TargetsNo targets recorded. Patient InstructionsNo instructions recorded. Reason for Referral None Reported. Medical Equipment None Reported. Allergies No known drug allergies Medications Name Sig Start Date Stop Date Status Note LastModified by Organization Details LastModified Time cyclobenzapr ine 10 mg tablet TAKE 1 TABLET BY MOUTH THREE TIMES A DAY NEEDED FOR MUSCLE SPASMS active Not Available Not Available No t Available prednisone 20 mg tablet TAKE 3 TABLETS BY MOUTH EVERY DAY FOR 4 DAYS active Not Available Not Available No t Available prednisone 50 mg tablet Take 1 tablet every day by oral route in the morning for 5 days. 02/23 completed Not Available Not Available Not Available naproxen 500 mg tablet Take 1 tablet twice a day by oral route, for prn back pain. 2024 active Not Available Not Available Not Avai lable oxycodone 5 mg tablet TAKE 1 TABLET BY MOUTH EVERY 8 HOURS NEEDED FOR PAIN active Not Available Not Available No t Available Vitals Date Recorded Respiratory rate Body height Body weight Heart rate Oxygen saturation Oxygen saturation in Arterial blood by Pulse oximetry Body temperature Systolic And Diastolic Provider Name and Address Organization Details Last Updated DateTime 14 /min 167.64 cm 64599.4 g 85 /min 98 % 98 % 98 [degF] 153/94 mm[Hg] Not Available [facility] 11:25:54 Social History None recorded. Functional Status None recorded. Mental Status None recorded. Family History Nothing Reported. Medical History No medical history recorded. Past Encounters Encounter ID Performer Location Encounter Start Date Encounter Closed Date Diagnosis/Indication Diagnosis SNOMED-CT Code Diagnosis ICD10 Code Diagnosis IMO Codes Diagnosis Note [id number] GINA ROOT MD [address] [address] 02/11/2025 11:25:48 02/11/2025 23:13:34 Disorder of left sciatic nerve 5314053630 67812 M54.32 [id number] Acute exac erbation of chronic obstructive pulmonary disease 996571915 J44.1 this was a mistake not a diagnosis unable to delete Acute back pain with sciatica 558296271 M54.42 [id number] Yariel Weaver MD [address] [address] 02/15/2025 23:29:25 02/17/2025 11:12:46 Lumbago with sciatica 536155303 M54.40 [id number] Health Concerns Section Related Observation LastModified by Organization Detai ls LastModified Time None Recorded Concern Status LastModified by Organization Details LastModified Time None Recorded Advance Directives Directive None Recorded Payers Insurance Date Sequence Insurance Name Policy Number Policy Flores Covered Member ID Flores Member ID Guarantor Name 02/17/2025 1 [facility] - DOS ON OR AFTER 2022 - DUAL ELIGIBLE - USP OPTIONS AND ONE C[employer] (MEDICARE REPLACEMENT/ADV ANTAGE - HMO) Brandyn Roy [id number] Brandyn Roy Notes Date Note Type Note Provider Name and Address Organization Details Recorded Time 02/11/2025 text/html ROS as noted in the HPI HPI: Brandyn called into [facility] stating that he is in severe pain, he almost called 911 yesterday but did not. He states he has about 200 bone spurs in his disc and Neuropathy, he states he has a pinched nerve. He states he does not take narcotics. [...] first needs relief so he can move. ..................... ..................... ..................... ..................... ..................... ..................... ............... [facility] Nurse Triage Notes (Amy Bocanegra): Reason For Request: pain Chief Complaints: Extremity Pain PMH: Chronic Back Pain PMH Reviewed at 02/11/2025:35 Allergies Reviewed at 02/11/2025:35 Comments: HPI reviewed ..................... ..................... ..................... ..................... ..................... ..................... ............... Political Theory Professor Note From Greg Leon: Patient alert and oriented complains of lower [...] Patient demonstrates understanding of care and plan. [facility] Medication Orders: ketorolac 30 mg/mL injection solution: Administered prednisone 20 mg tablet: Administered ..................... ..................... ..................... ..................... ..................... ..................... ............... [facility] Consulted: Gina Root ..................... ..................... ..................... ..................... ..................... ..................... ............... Disposition: Fulfilled GINA ROOT MD [address] [place] [address],[address], [place], [address], [employer] 02/11/2025 12:52:41 02/15/2025 text/html [facility] Nurse Triage Notes (Jolie Dumont): Reason For Request: Patient has lower left back pain to leg and food knee fire pain wants help w/ pain management. Denies: Gloria Flash, circumferential gloria Gloria reported with black tissue to the area Open skin area after a fall with uncontrolled bleeding Abscess/infection with streaking noted, presence of fever or without Chief Complaints: Back Pain PMH: Chronic Back Pain PMH Reviewed at 02/15/2025 - 15:34 Allergies Reviewed at 02/15/2025 - 15:34 Comments: 49 y.o male complains of Back Pain Patient seen 02/11 for acute on chronic back pain, given toradol and prescribed Prednisone for 5 days. Patient reports being out of his gabapentin and taking last dose of prednisone He reached out to PCP who did not call him back He went to ED approx 02/13, they did not do any imaging, they wanted to keep patient for pain management but patient opted to go home Patient saw the chiropractor yesterday which made him more sore Patient reports >120 bone spurs between disc 11 &12. Patient states the pain from his left lower back radiates down his leg, feels like fire and stabbing , only has numbness and tingling to his left foot and right knee Denies loss of bowel or bladder Denies any trauma, no strenuous activity or heavy lifting Denies diabetes, denies any kidney disease and does not take any blood thinners He would like to be evaluated. I provided information on the mobile health provider response time and advised the patient and/or caregiver to monitor reported signs and symptoms. I discussed the warning signs of when to seek emergency care. ..................... ..................... ..................... ..................... ..................... ..................... ............... Political Theory Professor Note From Lillian Fischer: Pt chief complaint today of pain that radiators from his lower left back, down the leg on the same side and into the knee. Pt states that pain is 10/10 and quantifies the quality to a static/ burn feeling.pt was previously seen by [facility] provider where he was given 60 mg of oral prednisone and possibly an injection of ketorlac. Pt state that the prednisone assisted with his pain and is looking to see if he can be given another dose due to his primary being closed during this long weekend. Pt is also asking if he may have his gabapentin filled as well due to his script being out. (Pt informed we are unable to fill a script for Gabapentin due to the medication being a controlled substance.). Pt today denies cp, sob, NVD, dizziness or changes in vision. Nonneural focal exam, afebrile, vitals show an elevated BP due to pain, pt is able to ambulate with some difficulty due to back and leg pain. Lungs present as clear bilaterally on auscultation. Benign abdominal assessment, upon inspection of the lower left leg there does not appear to be any trauma, deformity or injury either to the leg and or knee. Area is not hot to touch. Lower left back presents similarly. Pt is coax4 with a gcs of 15. [facility] Yariel Weaver consulted. Pt is informed of findings. Pt provided 60 mg or oral prednisone for pain management. [facility] also sends a prescription to local pharmacy for prednisone. Pt is informed to call his local pcp at earliest convenience for assistance with further pain walker needed. Pt educated on red flag S&S and told to call emergency services if any present. ..................... ..................... ..................... ..................... ..................... ..................... ............... [facility] Consulted: Yariel Weaver ..................... ..................... ..................... ..................... ..................... ..................... ............... Disposition: Fulfilled Yariel Weaver MD [address] [facility],[address], [place], [address], [facility] [employer] LETY SHETH 02/16/2025 00:09:55
== END 2025-04-29 16:07 | disposition home or self-care (01) ==
LOC: HO.HMCH 15:03
PROVIDERS: PCP Student in an Organized Health Care Education/Training Program; Visit Provider Student in an Organized Health Care Education/Training Program
DX: I10 Essential (primary) hypertension (principal); E66.01 Morbid (severe) obesity due to excess calories; Z68.41 Body mass index [BMI] 40.0-44.9, adult; M54.9 Dorsalgia, unspecified; R73.09 Other abnormal glucose; F90.9 Attention-deficit hyperactivity disorder, unspecified type

== ENCOUNTER → 2025-04-29 15:02 | Outpatient (BNVA) | payer OTHER, SELFPAY | PROVIDERS: Visit Provider Student in an Organized Health Care Education/Training Program | DX: Z76.89 Persons encountering health services in other specified circumstances (principal); I10 Essential (primary) hypertension; M54.9 Dorsalgia, unspecified; E66.01 Morbid (severe) obesity due to excess calories; R73.09 Other abnormal glucose; F90.9 Attention-deficit hyperactivity disorder, unspecified type; Z68.41 Body mass index [BMI] 40.0-44.9, adult | CPT/HCPCS: 96127; 99202 ==